=== PATIENT | male | born 1980 | race Caucasian/White ===

== ENCOUNTER 2020-08-27 07:41 | Emergency (ER) | payer MEDICAID, SELFPAY ==
--- NOTE | ~2020-08-27 | CT_ITS ---
EXAMINATION: CT ABDOMEN AND PELVIS WITH CONTRAST CLINICAL INFORMATION: Right lower quadrant pain. Nausea and vomiting. COMPARISON: None TECHNIQUE: Multidetector volumetric images were obtained from the superior aspect of the liver through the pubic symphysis following administration 85 mL of Omnipaque 350 intravenous contrast. Sagittal and coronal reformatted images were obtained on the technologist's workstation. Oral contrast: Yes This CT examination was performed using dose optimization techniques as appropriate, variously including the following: *Automated exposure control *Adjustment of mA and/or kV according to patient size (this includes techniques or standardized protocols for targeted exams where dose is matched to indication/reason for exam; i.e. extremities or head) *Use of iterative reconstruction technique DLP: 429 mGy-cm FINDINGS: LUNG BASES: The visualized lung bases are unremarkable. LIVER, GALLBLADDER, AND BILIARY TREE: The liver is normal in size, shape, and attenuation. No focal hepatic lesion or biliary ductal dilatation is present. The gallbladder is unremarkable with no evidence of radiopaque gallstones, gallbladder wall thickening, or obvious pericholecystic inflammatory changes. PANCREAS: Unremarkable. SPLEEN: Unremarkable. ADRENAL GLANDS: Unremarkable. KIDNEYS AND URETERS: There is a 2 cm cyst in the upper pole of the left kidney. No ultrasound follow-up needed. The kidneys are otherwise unremarkable. BLADDER: Unremarkable. GASTROINTESTINAL TRACT: There is stool throughout the colon questionable for constipation. The small and large bowel are otherwise unremarkable. The appendix is unremarkable. ABDOMINAL WALL: No significant hernia is appreciated. LYMPH NODES: Normal. VASCULAR: Unremarkable. PELVIC VISCERA: Unremarkable. OSSEOUS STRUCTURES: Unremarkable. There is degenerative disc disease at L4-L5 and L5-S1. CT/CT abdomen pelvis w con IMPRESSION: Normal-appearing appendix. Stool throughout the colon questionable for constipation. Small left renal cyst.
[2020-08-27 07:49] VITALS: BP 116/70; PULSE 52; RESP 12; TEMP 36.7; O2SAT 98; BMI 21.8
--- NOTE | 2020-08-27 08:14 | ED.NAVMDI ---
HPI - Nausea/Vomiting/Diarrhea General Chief complaint: Nausea/Vomiting/Diarrhea Stated complaint: vomiting, abd pain Time Seen by Provider: 08/27/20 08:12 Source: patient Mode of arrival: ambulatory Limitations: no limitations History of Present Illness MD elicited complaint: nausea, vomiting, diarrhea and abdominal pain Onset (ago): day(s) (this AM) Description of vomiting: food contents Associated nausea: Yes Associated abdominal pain: Yes Location of pain: RLQ Radiation: diffuse Pain consistency: intermittent Severity: mild Quality: cramping, aching and dull Exacerbating factors: eating Relieving factors: none Context: other (states he had his 2nd covid shot yesterday) Associated symptoms: nausea/vomiting Related Data Previous Rx's Medication Instructions Recorded ondansetron 4 mg PO Q8H PRN #20 tab 08/27/20 Allergies Allergy/AdvReac Type Severity Reaction Status Date / Time bee pollen [BEE STINGS] Allergy Unknown REDNESS Unverified 11/01/19 15:08 AND SWELLING morphine [MORPHINE] Allergy Unknown RASH Unverified 11/01/19 15:08 shrimp [SHRIMP] Allergy Unknown HIVES Unverified 11/01/19 15:08 Review of Systems Review of Systems: Constitutional : No Weight loss, No Fever, No Chills ENT/Mouth : No sore throat, No Rhinorrhea Eyes: No Swelling, No Redness Cardiovascular : No Chest Pain, No SOB, NoEdema Respiratory : No Cough, No Sputum, No Wheezing Gastrointestinal : Positive Nausea, Positive Vomiting, positive Diarrhea, positive abdominal Pain, No Hematochezia, No Melena Genitourinary : No Dysuria, No Urinary Frequency, No Hematuria, No Urgency Musculoskeletal : No joint pain, No Myalgias, No Joint Swelling Skin : No Skin Lesions, No rash Neuro : No Weakness, No Numbness, No Dizziness, No Headache Psych : No Anxiety/Panic, No Depression Heme/Lymph: No Bruising, No Lymphadenopathy Endocrine : No Polyuria, No Polydipsia All other systems reviewed and are negative. Gastrointestinal: Gastrointestinal: Reports nausea PMFSH Past Medical History Attestation statement: The following information was validated with the patient. Medical History No active medical problems Social History Social History (Updated 08/27/20 @ 08:20 by Vy Solano DO) Patient Tobacco Use Status: Current everyday Tobacco user Use of substances other than those prescribed or required for medical reasons: No Advance Directives: Yes Advance Directives Information Provided: No Advance Directives on File: No Physical Exam Vital Signs: Vital Signs: Last Vital Signs Temp 98.2 F 08/27/20 08:53 Pulse 47 L 08/27/20 08:53 Resp 16 08/27/20 08:53 BP 113/71 08/27/20 08:53 Pulse Ox 98 08/27/20 08:53 Body Mass Index 21.8 Appearance: Alert. Oriented X3. No acute distress. Eyes: Pupils equal, round and reactive to light. ENT: Pharynx normal. Neck: Normal inspection. Neck supple. CVS: Normal heart rate and rhythm. Pulses normal. Respiratory: No respiratory distress. Breath sounds normal. Abdomen: Soft and moderate RLQ ttp no rebound or guarding Skin: Skin warm and dry. Normal skin color. Normal skin turgor. Extremities: No lower extremity edema. No calf ttp Neuro: Oriented X 3. No motor deficit. No sensory deficit. Course Course Course Narrative: no acute findings can tolerate PO stable for DC MDM - Nausea/Vomiting/Diarrhea MDM Narrative Medical decision making narrative: 39 yo male had 2nd COVID shot yesterday comes in with n/v/d since middle of the night notes RLQ pain as well - seems unusual reaction will need labs, IVF, toradol/zofran and CT scan to evaluate appendix, dispo per results and findings. Differential Diagnosis Differential diagnosis: Likely food poisoning and drug-induced nausea and vomiting Lab Data Result diagrams: 08/27/20 08:51 08/27/20 08:51 Labs: Lab Results 08/27/20 08/27/20 Range/Units 08:51 08:51 WBC 6.7 (4.8-10.8) X10*3/uL RBC 4.10 L (4.60-5.80) X10*6/uL Hgb 12.9 L (14.0-18.0) g/dl Hct 37.2 L (42-52) % MCV 90.7 (80-98) fL MCH 31.5 (27.0-33.0) pg MCHC 34.7 (31.0-36.0) g/dl RDW 13.4 (11.0-16.0) % Plt Count 218 (160-400) X10*3/uL MPV 9.5 (9.4-12.4) fL Immature Gran % (Auto) 0.3 (0.0-0.4) % Neut % (Auto) 54.6 (45-73) % Lymph % (Auto) 27.2 (20-40) % Mcculloch % (Auto) 12.3 H (2-11) % Eos % (Auto) 4.6 H (0-4) % Baso % (Auto) 1.0 (0-2) % Lymph # (Auto) 1.8 (1.2-4.9) X10*3/uL Mcculloch # (Auto) 0.8 (0.1-1.2) X10*3/uL Eos # (Auto) 0.3 (0.0-0.4) X10*3/uL Baso # (Auto) 0.1 (0.0-0.2) X10*3/uL Abs Immat Gran (auto) 0.02 (0.00-0.03) X10*3/uL Absolute Neuts (auto) 3.6 (2.0-8.3) X10*3/uL Absolute Nucleated RBC 0.000 (0.0-0.012) X10*3/uL Nucleated RBC % (auto) 0.0 (0.0-0.2) /100WBC Sodium 141 (135-145) mmol/L Potassium 4.2 (3.3-5.1) mmol/L Chloride 109 H (96-108) mmol/L Carbon Dioxide 27 (22-29) mmol/L Anion Gap 9 L (12-20) BUN 14 (9-16) mg/dL Creatinine 0.82 (0.5-1.4) mg/dL Estim Creat Clear Calc 117.9 Estimated GFR > 60 Random Glucose 106 (60-115) mg/dL Calcium 8.7 (8.4-10.2) mg/dL Magnesium 2.3 (1.6-2.6) mg/dL Total Bilirubin 0.4 (0.0-1.0) mg/dL Direct Bilirubin 0.2 (0.0-0.5) mg/dL AST 20 (5-37) U/L ALT 22 (0-40) U/L Alkaline Phosphatase 54 (39-117) U/L Total Protein 6.2 L (6.5-8.0) g/dL Albumin 3.7 (3.5-5.0) g/dL Lipase 24 (8-78) U/L Discharge Plan Discharge Clinical Impression: Vomiting Qualifiers: Vomiting type: unspecified Vomiting Intractability: non-intractable Nausea presence: with nausea Qualified Code(s): R11.2 - Nausea with vomiting, unspecified Patient Disposition: Home, Self-Care Instructions: Acute Nausea and Vomiting (ED) Additional Instructions: return to ED for any worsening symptoms or concerns Prescriptions: New ondansetron 4 mg tablet,disintegrating 4 mg PO Q8H PRN (Reason: nausea and vomiting) Qty: 20 RF: 0 Stand Alone Forms: Work/School Release
[2020-08-27 08:53] VITALS: BP 113/71; PULSE 47; RESP 16; TEMP 36.8; O2SAT 98
[2020-08-27 08:58] LABS: MANUAL DIFF FLAG NO
[2020-08-27 09:00] LABS: Basophils Absolute Auto 0.1 X10*3/uL (0.0-0.2); Eosinophils Absolute Auto 0.3 X10*3/uL (0.0-0.4); Eosinophils Percent Auto 4.6 % (0-4); Hematocrit 37.2 % (42-52); Hemoglobin 12.9 g/dl (14.0-18.0); Imm Gran Abs Auto 0.02 X10*3/uL (0.00-0.03); Imm Gran Pct Auto 0.3 % (0.0-0.4); Lymphocytes Absolute Auto 1.8 X10*3/uL (1.2-4.9); Lymphocytes Percent Auto 27.2 % (20-40); Mean Corpuscular HGB Conc 34.7 g/dl (31.0-36.0); Mean Corpuscular Hemoglobin 31.5 pg (27.0-33.0); Mean Corpuscular Volume 90.7 fL (80-98); Mean Platelet Volume 9.5 fL (9.4-12.4); Monocytes Absolute Auto 0.8 X10*3/uL (0.1-1.2); Monocytes Percent Auto 12.3 % (2-11); Neutrophils Absolute Auto 3.6 X10*3/uL (2.0-8.3); Neutrophils Percent Auto 54.6 % (45-73); Platelet Count 218 X10*3/uL (160-400); Red Cell Distribution Width 13.4 % (11.0-16.0); White Blood Count 6.7 X10*3/uL (4.8-10.8)
[2020-08-27] MEDS: 0.9 % Sodium Chloride 1,000 ML 999 ML IVCONT (09:04)
[2020-08-27] MEDS: Ketorolac Tromethamine 15 MG/ML VIAL IVPUSH (09:08)
[2020-08-27] MEDS: ondansetron HCL 4 MG/2 ML VIAL IVPUSH (09:08)
[2020-08-27 09:32] LABS: Alanine Aminotransferase 22 U/L (0-40); Albumin Level 3.7 g/dL (3.5-5.0); Alkaline Phosphatase 54 U/L (39-117); Anion Gap 9 (12-20); Aspartate Amino Transferase 20 U/L (5-37); Bilirubin Direct 0.2 mg/dL (0.0-0.5); Bilirubin Total 0.4 mg/dL (0.0-1.0); Blood Urea Nitrogen 14 mg/dL (9-16); Calcium 8.7 mg/dL (8.4-10.2); Carbon Dioxide 27 mmol/L (22-29); Chloride 109 mmol/L (96-108); Creatinine Clr Calc Pharmacy 117.9; Estimated Glomerular Filt Rate > 60; Glucose Random 106 mg/dL (60-115); Lipase 24 U/L (8-78); Magnesium 2.3 mg/dL (1.6-2.6); Potassium 4.2 mmol/L (3.3-5.1); Sodium 141 mmol/L (135-145); Total Protein 6.2 g/dL (6.5-8.0)
[2020-08-27] MEDS: iohexoL 350 MG/ML 100 ML INFUS..BTL IV (09:43)
[2020-08-27 10:51] VITALS: BP 112/72; PULSE 56; RESP 16; O2SAT 98
== END 2020-08-27 10:55 | disposition home or self-care (01) ==
PROVIDERS: Emergency Provider Emergency Medicine
DX: R11.2 Nausea with vomiting, unspecified (principal); R10.31 Right lower quadrant pain; F17.200 Nicotine dependence, unspecified, uncomplicated; Z79.899 Other long term (current) drug therapy; Z71.6 Tobacco abuse counseling
CPT/HCPCS: 36415; 74177; 80048; 80076; 83690; 83735; 85025; 96365; 96375; 99284; J1885; J2405; Q9967

== ENCOUNTER 2020-12-11 08:59 | Emergency (ER) | payer MEDICAID, SELFPAY ==
[2020-12-11 09:28] VITALS: BP 120/73; PULSE 57; RESP 16; TEMP 36.4; O2SAT 99; BMI 21.2
--- NOTE | 2020-12-11 09:36 | ED.GENADULT ---
HPI - General Adult General Chief complaint: Skin/Abscess/Foreign Body Stated complaint: rash Time Seen by Provider: 12/11/20 09:36 Source: patient Limitations: no limitations History of Present Illness HPI narrative: Patient presents to the ER with a rash under his left breast that started with a burning sensation in his back in her came around under his left breast. Patient noticed some redness and blistering recently. Patient did some Google searches and thinks he has shingles. Patient denies past history of shingles patient denies nausea vomiting fever shortness of breath. Patient denies history of diabetes. Symptoms are mild to moderate pain as 6/10. No other complaints at this time. Related Data Previous Rx's Medication Instructions Recorded ondansetron 4 mg disintegrating 4 mg PO Q8H PRN #20 tab 08/27/20 tablet ibuprofen 600 mg tablet 600 mg PO Q8H PRN #20 tab 12/11/20 valacyclovir 1 gram tablet 1,000 mg PO TID 7 Days #21 tab 12/11/20 Allergies Allergy/AdvReac Type Severity Reaction Status Date / Time bee pollen [BEE STINGS] Allergy Unknown REDNESS Unverified 11/01/19 15:08 AND SWELLING morphine [MORPHINE] Allergy Unknown RASH Unverified 11/01/19 15:08 shrimp [SHRIMP] Allergy Unknown HIVES Unverified 11/01/19 15:08 Review of Systems Review of Systems: Constitutional : No Weight loss, No Fever, No Chills, ENT/Mouth : No Hearing loss, No Ear Pain, No Nasal Congestion Eyes: No Eye Pain, No Swelling, No Redness, No Foreign Body, No Discharge, No Vision Changes Cardiovascular : No Chest Pain, No SOB Respiratory : No Cough Gastrointestinal : No Nausea, No Vomiting, No Diarrhea Musculoskeletal : Positive rash upper torso extending the front of the chest. Patient denies any muscle skeletal pain. Neuro : No Weakness, No Numbness, No Paresthesias, No Loss of Consciousness, No Dizziness, No Headache PMFSH Past Medical History Attestation statement: The following information was validated with the patient. Medical History No active medical problems Social History Social History Alcohol intake: current Alcohol intake frequency: holidays/special occasions only Patient Tobacco Use Status: Current everyday Tobacco user Advance Directives: No Physical Exam Vital Signs: Vital Signs: Last Vital Signs Temp 97.6 F 12/11/20 09:28 Pulse 57 12/11/20 09:28 Resp 16 12/11/20 09:28 BP 120/73 12/11/20 09:28 Pulse Ox 99 12/11/20 09:28 Body Mass Index 21.2 vital signs have been reviewed as normal and appeared to be correct. Blood pressure normal. Heart rate normal. Respiration rate normal. Temperature normal. Oxygen saturation normal. Appearance: Alert. Oriented X3. No acute distress. Head: Normal external exam. Normocephalic. Atraumatic. Eyes: PERRLA. EOMI. ENT: Pharynx normal. Uvula midline. Moist mucous membranes. Neck: Soft full range of motion, no JVD CVS: Heart regular rate and rhythm no murmurs and rubs Respiratory: Breath sounds are clear to auscultation bilaterally. No accessory muscle use noted. Back: No CVA tenderness. Full range of motion noted. Skin: T4-T5 dermatome on the left side under the left breast positive blistering erythematous rash which is consistent with zoster. Extremities: No lower extremity edema. Extremities exhibit normal range of motion. Extremities nontender. Neuro: Oriented X 3. No motor deficit. No sensory deficit. Reflexes normal. Course Course Course Narrative: T4-T5 left dermatomal zoster Cellulitis Acute rash Contact dermatitis Symptoms are consistent with zoster in the T4-T5 dermatome on the left side it has been greater than 72 hours will treat with valacyclovir and analgesic at this time. Discharge Plan Discharge Clinical Impression: Herpes zoster Qualifiers: Herpes zoster complications: with other complications Qualified Code(s): B02.8 - Zoster with other complications Patient Disposition: Home, Self-Care Instructions: Shingles (ED) Additional Instructions: Your symptoms are consistent with shingles medications as directed follow-up with PCP Prescriptions: New valacyclovir 1 gram tablet 1,000 mg PO TID 7 Days Qty: 21 RF: 0 ibuprofen 600 mg tablet 600 mg PO Q8H PRN (Reason: pain) Qty: 20 RF: 0 No Action ondansetron 4 mg tablet,disintegrating 4 mg PO Q8H PRN (Reason: nausea and vomiting) Qty: 20 RF: 0
== END 2020-12-11 09:53 | disposition home or self-care (01) ==
PROVIDERS: Emergency Provider Emergency Medicine
DX: B02.8 Zoster with other complications (principal)
CPT/HCPCS: 99283

== ENCOUNTER 2020-12-22 10:18 | Emergency (ER) | payer MEDICAID, SELFPAY ==
[2020-12-22 10:41] VITALS: BP 123/67; PULSE 59; RESP 19; TEMP 36.6; O2SAT 99; BMI 21.2
--- NOTE | 2020-12-22 11:00 | ED.GENADULT ---
HPI - General Adult General Chief complaint: General Medical Stated complaint: swollen face Time Seen by Provider: 12/22/20 10:58 Source: patient Mode of arrival: ambulatory Limitations: no limitations History of Present Illness HPI narrative: 40-year-old male came in for evaluation of right facial swelling. Patient declined any dental pain or recent sinus infection in the past, patient also declined fever or chills. No trauma to the face. Facial swelling starting since a.m. Related Data Previous Rx's Medication Instructions Recorded ondansetron 4 mg disintegrating 4 mg PO Q8H PRN #20 tab 08/27/20 tablet ibuprofen 600 mg tablet 600 mg PO Q8H PRN #20 tab 12/11/20 valacyclovir 1 gram tablet 1,000 mg PO TID 7 Days #21 tab 12/11/20 amoxicillin 875 mg-potassium 1 tab PO Q12H #14 tab 12/22/20 clavulanate 125 mg tablet (Augmentin) Allergies Allergy/AdvReac Type Severity Reaction Status Date / Time bee pollen [BEE STINGS] Allergy Unknown REDNESS Unverified 11/01/19 15:08 AND SWELLING morphine [MORPHINE] Allergy Unknown RASH Unverified 11/01/19 15:08 shrimp [SHRIMP] Allergy Unknown HIVES Unverified 11/01/19 15:08 Review of Systems Review of Systems: All other systems are reviewed and are negative Constitutional: Reports as per HPI and Reports no additional constitutional complaints Eyes: Reports as per HPI and Reports no additional eye complaints Reports system reviewed and no additional complaints, except as documented Cardiovascular: Reports as per HPI and Reports no additional cardiovascular complaints Respiratory: Reports as per HPI and Reports no additional respiratory complaints Gastrointestinal: Reports as per HPI and Reports no additional gastrointestinal complaints Genitourinary: Reports no additional female genitourinary complaints Musculoskeletal: Reports no additional musculoskeletal complaints Skin/Breast: Reports system reviewed and no additional complaints, except as docu Psychiatric: Reports no additional psychiatric complaints Endocrine: Reports no additional endocrine complaints Hematologic/Lymphatic: Reports no additional hematologic/lymphatic complaints Allergic/Immunologic: Reports no additional allergic/immunologic complaints Reports system reviewed and no additional complaints, except as documented and Reports Abnormal speech present PMFSH Past Medical History Medical History No active medical problems Social History Social History Alcohol intake: current Alcohol intake frequency: holidays/special occasions only Patient Tobacco Use Status: Current everyday Tobacco user Advance Directives: No Advance Directives Information Provided: Yes Physical Exam Vital Signs: Vital Signs: Last Vital Signs Temp 97.9 F 12/22/20 10:41 Pulse 59 12/22/20 10:41 Resp 19 12/22/20 10:41 BP 123/67 12/22/20 10:41 Pulse Ox 99 12/22/20 10:41 Body Mass Index 21.2 Vital signs have been reviewed as appeared to be correct. Blood pressure normal. Heart rate normal. Respiration rate normal. Temperature normal. Oxygen saturation normal. Appearance: Alert. Oriented X3. No acute distress. Head: Normal external exam. Normocephalic. Atraumatic. No Andersen signs noted. No raccoon eyes noted Eyes: PERRLA. EOMI. Conjunctiva and sclera normal. Eyelids normal. Facial exam and dental exam: Swelling over right mandibular area, no fluctuation, no drainage, no abscess is appreciated, with decay of the right lower 3rd molar tooth no dental abscess. ENT: TM's Normal. Pharynx normal. Uvula midline. Moist mucous membranes. No trismus noted. No drooling noted. No muffled voice noted. Neck: Normal inspection. Neck supple. FROM. No adenopathy. Thyroid Normal. No meningeal signs. No neck mass noted. CVS: Normal heart rate and rhythm. Heart sound normal. No murmurs noted. Pulses normal throughout. Respiratory: No respiratory distress. Painless inspiration. Breath sounds normal. No wheezes/rales/rhonchi noted. Chest nontender. No accessory muscle usage noted or decreased air movement noted. Abdomen: Soft and nontender. Bowel sounds normal in all 4 quadrants. No distention noted. No organomegaly noted. No visible injury noted. Back: No CVA tenderness. Full range of motion noted. Skin: Skin warm and dry. Normal skin color. Normal skin turgor. No rashes/lesions/lacerations noted. Extremities: No lower extremity edema. Extremities exhibit normal range of motion. Extremities nontender. Neuro: Oriented X 3. Cranial nerve exam: II-XII are grossly intact No motor deficit. No sensory deficit. Reflexes normal. Course Course Course Narrative: Assessment and plan. Facial cellulitis likely secondary to a dental infection, as discussed with the patient we will start the patient on Augmentin and follow-up with his dentist within a week. Discharge Plan Discharge Clinical Impression: Facial cellulitis Patient Disposition: Home, Self-Care Instructions: Cellulitis (ED) Prescriptions: New amoxicillin-pot clavulanate [Augmentin] 875-125 mg tablet 1 tab PO Q12H Qty: 14 RF: 0 No Action ondansetron 4 mg tablet,disintegrating 4 mg PO Q8H PRN (Reason: nausea and vomiting) Qty: 20 RF: 0 valacyclovir 1 gram tablet 1,000 mg PO TID 7 Days Qty: 21 RF: 0 ibuprofen 600 mg tablet 600 mg PO Q8H PRN (Reason: pain) Qty: 20 RF: 0 Referrals: Physician,None [Primary Care Provider] - 2 days Stand Alone Forms: Work/School Release
--- NOTE | 2020-12-22 11:19 | PC.NURSE ---
PT STATES THIS MORNING HE WOKE UP AND RIGHT SIDE OF FACE WAS SWOLLEN AND HURT WHEN HE OPENNED HIS MOUTH OR TRIED TO EAT. DENIES ANY DENTAL CARIES.
== END 2020-12-22 11:20 | disposition home or self-care (01) ==
LOC: HO.ED 11:00
PROVIDERS: Emergency Provider Emergency Medicine
DX: L03.211 Cellulitis of face (principal); F17.200 Nicotine dependence, unspecified, uncomplicated; Z71.6 Tobacco abuse counseling; Z79.899 Other long term (current) drug therapy
CPT/HCPCS: 99283

== ENCOUNTER 2021-01-26 10:46 | Emergency (ER) | payer MEDICAID, SELFPAY ==
[2021-01-26 11:10] VITALS: BP 132/76; PULSE 71; RESP 17; TEMP 36.8; O2SAT 98; BMI 19.3
--- NOTE | 2021-01-26 11:22 | ED_ITS ---
HPI - General Adult General Chief complaint: General Medical Stated complaint: multiple painful lumps on R earlobe Time Seen by Provider: 01/26/21 11:21 Source: patient Mode of arrival: ambulatory Limitations: no limitations History of Present Illness HPI narrative: Tract 40-year-old male with no significant past medical history presents to the emergency department with a lump that is painful behind his right ear X 7 days. Patient tells me that the area is very tender, and it is causing him discomfort when he sleeps, and when he wears a mask. He tells me he has tried multiple pain medicines, without relief, he tells me the lump keeps getting larger. Onset (ago): day(s) (7) Location: right (behind ear) Radiation: non-radiation Severity: severe Severity scale (1-10): 10 Quality: aching and constant Pain Consistency: constant Relieving factors: none Exacerbating factors: none Associated symptoms: denies other symptoms Treatments prior to arrival: NSAID Related Data Previous Rx's Medication Instructions Recorded ondansetron 4 mg disintegrating 4 mg PO Q8H PRN #20 tab 08/27/20 tablet ibuprofen 600 mg tablet 600 mg PO Q8H PRN #20 tab 12/11/20 valacyclovir 1 gram tablet 1,000 mg PO TID 7 Days #21 tab 12/11/20 amoxicillin 875 mg-potassium 1 tab PO Q12H #14 tab 12/22/20 clavulanate 125 mg tablet (Augmentin) doxycycline hyclate 100 mg capsule 100 mg PO BID 10 Days #20 cap 01/26/21 oxycodone 5 mg tablet 5 mg PO Q8H PRN #8 tab 01/26/21 prednisone 20 mg tablet 40 mg PO DAILY 5 Days #10 tab 01/26/21 Allergies Allergy/AdvReac Type Severity Reaction Status Date / Time bee pollen [BEE STINGS] Allergy Unknown REDNESS Verified 01/26/21 11:09 AND SWELLING morphine [MORPHINE] Allergy Unknown RASH Verified 01/26/21 11:09 shrimp [SHRIMP] Allergy Unknown HIVES Verified 01/26/21 11:09 Review of Systems Review of Systems: Constitutional : No Fever, No Chills, Cardiovascular : No Chest Pain, No SOB Respiratory : No Dyspnea Gastrointestinal : No abdominal pain Musculoskeletal : No Joint Swelling Skin : No rash, No skin laceration, + skin lump/mass Neuro : No Weakness, No Numbness Psych : No SI/HI Yes all other systems are reviewed and are negative [facility] Past Medical History Attestation statement: The following information was validated with the patient. Source: old records reviewed and nursing notes reviewed Medical History No active medical problems Social History Social History Alcohol intake: current Alcohol intake frequency: holidays/special occasions only Patient Tobacco Use Status: Current everyday Tobacco user Advance Directives: No Advance Directives Information Provided: No Physical Exam Vital Signs: Vital Signs: Last Vital Signs Temp 98.2 F 01/26/21 11:10 Pulse 71 01/26/21 11:10 Resp 17 01/26/21 11:10 BP 132/76 01/26/21 11:10 Pulse Ox 98 01/26/21 11:10 BMI result Body Mass Index 19.3 VSS Appearance: Alert.? Oriented X3.? No acute distress.? Head: Normocephalic, atraumatic, no step-offs or deformities Eyes: Pupils equal, round and reactive to light.? ENT: Pharynx normal.?+ palpable posterior auricular adenopathy on right side. + abscess behind the right ear. No pain with manipulation of external ear, unable to visualize bilateral tympanic membranes due to cerumen impaction. Neck: Normal inspection.? Neck supple.? CVS: Normal heart rate and rhythm.? Pulses normal.? Respiratory: No respiratory distress.? Breath sounds normal.? Abdomen: Soft and nontender.? Skin: Skin warm and dry.? Normal skin color.? Normal skin turgor.? Extremities: No lower extremity edema.? No calf ttp. 5/5 strength to bilateral upper and lower extremities Back: No midline tenderness, no C-spine tenderness, full range of motion, no CVA tenderness bilaterally Neuro: Oriented X 3.? No motor deficit.? No sensory deficit. Course Reevaluation(s) Reevaluation #1: Successfully did an incision and drainage at the bedside, patient tolerated procedure well. Plan at this time is to discharge patient home on prednisone and antibiotics. I have advised him to return to the emergency department with new or worsening symptoms, and follow up with his PCP for further evaluation I attest that I have reviewed patients MassPAT, and at the time prescribing the patient a controlled substance is appropriate based off of patients diagnosis and treatment plan. Time: 11:57 Procedures Abscess I/D Site: other (Behind right ear) Side (if applicable): right Local Anesthetic: lidocaine 2% Amount of anesthesia used (mL): 3 Technique: incised with blade Amount of fluid expressed (mL): 8 Sent for culture/gram staining?: No Irrigation: Yes Packing used?: none Medical Decision Making [facility] Narrative Medical decision making narrative: 1125 40-year-old male with no significant medical history presents to the emergency department with pain, swelling and a lump located behind right ear X 1 week progressivly worsening. Denies constitutional sx, and fevers and chills. Magnus CONLEY on tetanus. Physical exam significant for right-sided posterior auricular adenopathy and a large abcess behidn the right ear No other lymphadenopathy noted. Rest of physical examination benign. Plan at this time is to do a bedside incision and drainage she with 2% lidocaine. Critical Care Time Critical Care Time Critical Care Time: No Discharge Plan Discharge Clinical Impression: Abscess, Lymphadenopathy Patient Disposition: Home, Self-Care Instructions: Lymphadenopathy (ED), Abscess (ED), Abscess Follow-up (ED), Abscess Incision and Drainage (DC) Additional Instructions: Take your medications as prescribed. If you were prescribed antibiotics today, it is important that you take your medication to their entirety, do not skip any doses, do not finish them early. Follow-up with your primary care provider this week. Return to the emergency department with new or worsening symptoms. In case of emergency call 911 I attest that I have reviewed patients MassPAT, and at the time prescribing the patient a controlled substance is appropriate based off of patients diagnosis and treatment plan. Prescriptions: New doxycycline hyclate 100 mg capsule 100 mg PO BID 10 Days Qty: 20 RF: 0 prednisone 20 mg tablet 40 mg PO DAILY 5 Days Qty: 10 RF: 0 oxycodone 5 mg tablet 5 mg PO Q8H PRN (Reason: pain) Qty: 8 RF: 0 No Action ondansetron 4 mg tablet,disintegrating 4 mg PO Q8H PRN (Reason: nausea and vomiting) Qty: 20 RF: 0 valacyclovir 1 gram tablet 1,000 mg PO TID 7 Days Qty: 21 RF: 0 ibuprofen 600 mg tablet 600 mg PO Q8H PRN (Reason: pain) Qty: 20 RF: 0 amoxicillin-pot clavulanate [Augmentin] 875-125 mg tablet 1 tab PO Q12H Qty: 14 RF: 0 Referrals: Physician,None [Primary Care Provider] - 2 days Stand Alone Forms: Work/School Release
[2021-01-26] MEDS: Lidocaine HCl 2 % MPF 5 ML VIAL SUBCUT (12:20)
== END 2021-01-26 12:23 | disposition home or self-care (01) ==
PROVIDERS: Emergency Provider Emergency Medicine
DX: L02.811 Cutaneous abscess of head [any part, except face] (principal); R59.0 Localized enlarged lymph nodes
CPT/HCPCS: 10060; 99283; 99284

== ENCOUNTER 2021-07-30 20:44 | Emergency (ER) | payer MEDICAID, SELFPAY ==
--- NOTE | ~2021-07-30 | XR_ITS ---
EXAMINATION: XR CHEST CLINICAL INFORMATION: Rib pain/cough COMPARISON: None TECHNIQUE: 2 views of the chest were obtained. FINDINGS: The lungs are well-expanded and clear. The heart size and pulmonary vascularity is normal. No gross bony abnormality seen. XR/XR chest 2V IMPRESSION: Unremarkable chest exam
[2021-07-30 21:01] VITALS: BP 113/56; PULSE 73; RESP 18; TEMP 37.2; O2SAT 98; BMI 22.2
--- NOTE | 2021-07-30 21:49 | PC.NURSE ---
pt not in waiting room at this time wait time is 1 hour.
--- NOTE | 2021-07-30 22:39 | ECG_ITS ---
Test Reason : rib pain Blood Pressure : / mmHG Vent. Rate : 054 BPM Atrial Rate : 054 BPM P-R Int : 128 ms QRS Dur : 094 ms QT Int : 408 ms P-R-T Axes : 073 063 042 degrees QTc Int : 386 ms Sinus bradycardia Otherwise normal ECG When compared with ECG of 17-MAY-2018 12:35, No significant change was found Referred By: Leonardo Ruano Electronically Signed By:Dao Alicia
[2021-07-30 23:05] LABS: Basophils Absolute Auto 0.1 X10*3/uL (0.0-0.2); Basophils Percent Auto 1.2 % (0-2); Eosinophils Absolute Auto 0.3 X10*3/uL (0.0-0.4); Eosinophils Percent Auto 4.4 % (0-4); Hematocrit 37.9 % (42.0-52.0); Hemoglobin 12.9 g/dl (14.0-18.0); Imm Gran Abs Auto 0.02 X10*3/uL (0.00-0.03); Imm Gran Pct Auto 0.3 % (0.0-0.4); Lymphocytes Absolute Auto 2.1 X10*3/uL (1.2-4.9); Lymphocytes Percent Auto 29.3 % (20-40); MANUAL DIFF FLAG NO; Mean Corpuscular Hemoglobin 30.5 pg (27.0-33.0); Mean Corpuscular Volume 89.6 fL (80.0-98.0); Mean Platelet Volume 9.7 fL (9.4-12.4); Monocytes Absolute Auto 0.7 X10*3/uL (0.1-1.2); Monocytes Percent Auto 10.2 % (2-11); Neutrophils Percent Auto 54.6 % (45-73); Platelet Count 229 X10*3/uL (160-400); Red Blood Count 4.23 X10*6/uL (4.60-5.80); Red Cell Distribution Width 14.2 % (11.0-16.0); White Blood Count 7.3 X10*3/uL (4.8-10.8)
[2021-07-30 23:13] LABS: D Dimer High Sensitivity < 150 NG/ML
[2021-07-30 23:26] LABS: Alanine Aminotransferase 25 U/L (0-40); Alkaline Phosphatase 56 U/L (39-117); Anion Gap 11 (12-20); Aspartate Amino Transferase 27 U/L (5-37); Bilirubin Direct 0.2 mg/dL (0.0-0.5); Bilirubin Total 0.4 mg/dL (0.0-1.0); Blood Urea Nitrogen 15 mg/dL (9-16); Carbon Dioxide 26 mmol/L (22-29); Chloride 106 mmol/L (96-108); Creatinine Clr Calc Pharmacy 95.7; Estimated Glomerular Filt Rate > 60; Glucose Random 89 mg/dL (60-115); Lipase 65 U/L (8-78); Potassium 3.9 mmol/L (3.3-5.1); Sodium 139 mmol/L (135-145); Total Protein 6.8 g/dL (6.5-8.0)
[2021-07-30 23:31] LABS: Troponin-I High Sensitivity < 3.5 ng/L (<3.5-35.0)
--- NOTE | 2021-07-30 23:45 | ED.GENADULT ---
HPI - General Adult General Chief complaint: Upper Respiratory Symptoms Stated complaint: bilateral rib pain Time Seen by Provider: 07/30/21 22:39 Source: patient Mode of arrival: ambulatory Limitations: no limitations History of Present Illness HPI narrative: 40 years old male came in for evaluation of bilateral rib pain. Pain started since yesterday, the pain has been constant localized to bilateral chest wall with no radiation, pain is more with movement and taking a deep breath, patient been having dry coughing, no fever or chills, Patient declined any recent travel or lower extremity swelling no history of DVT / PE, no family history of young or [place] at young age. Patient quit smoking 1 year ago. No history of hypertension or diabetes or high cholesterol. No history of chest trauma. Related Data Previous Rx's Medication Instructions Recorded ondansetron 4 mg disintegrating 4 mg PO Q8H PRN nausea and 08/27/20 tablet vomiting #20 tabs ibuprofen 600 mg tablet 600 mg PO Q8H PRN pain #20 tabs 12/11/20 valacyclovir 1 gram tablet 1,000 mg PO TID 7 days #21 tabs 12/11/20 amoxicillin 875 mg-potassium 1 tab PO Q12H #14 tabs 12/22/20 clavulanate 125 mg tablet (Augmentin) doxycycline hyclate 100 mg capsule 100 mg PO BID 10 days #20 caps 01/26/21 oxycodone 5 mg tablet 5 mg PO Q8H PRN pain #8 tabs 01/26/21 prednisone 20 mg tablet 40 mg PO DAILY 5 days #10 tabs 01/26/21 Allergies Allergy/AdvReac Type Severity Reaction Status Date / Time bee pollen [BEE STINGS] Allergy Unknown REDNESS Verified 07/30/21 21:01 AND SWELLING morphine [MORPHINE] Allergy Unknown RASH Verified 07/30/21 21:01 shrimp [SHRIMP] Allergy Unknown HIVES Verified 07/30/21 21:01 Review of Systems Review of Systems: All other systems are reviewed and are negative Constitutional: Reports as per HPI and Reports no additional constitutional complaints Eyes: Reports as per HPI and Reports no additional eye complaints Reports system reviewed and no additional complaints, except as documented Cardiovascular: Reports as per HPI and Reports no additional cardiovascular complaints Respiratory: Reports as per HPI and Reports no additional respiratory complaints Gastrointestinal: Reports as per HPI and Reports no additional gastrointestinal complaints Genitourinary: Reports no additional female genitourinary complaints Musculoskeletal: Reports no additional musculoskeletal complaints Skin/Breast: Reports system reviewed and no additional complaints, except as docu Psychiatric: Reports no additional psychiatric complaints Endocrine: Reports no additional endocrine complaints Hematologic/Lymphatic: Reports no additional hematologic/lymphatic complaints Allergic/Immunologic: Reports no additional allergic/immunologic complaints Reports system reviewed and no additional complaints, except as documented and Reports Abnormal speech present [facility] Past Medical History Medical History No active medical problems Social History Social History Alcohol intake: current Alcohol intake frequency: holidays/special occasions only Patient Tobacco Use Status: Current everyday Tobacco user Advance Directives: No Physical Exam ED Vital Signs: Vital Signs - 24 hr 07/30/21 21:01 Temperature 99.0 F Pulse Rate 73 Respiratory Rate 18 Blood Pressure 113/56 L Pulse Oximetry 98 Oxygen Delivery Method Room Air BMI result Body Mass Index 22.2 vital signs have been reviewed as appeared to be correct. Blood pressure normal. Heart rate normal. Respiration rate normal. Temperature normal. Oxygen saturation normal. Appearance: Alert. Oriented X3. No acute distress. Head: Normal external exam. Normocephalic. Atraumatic. No Andersen signs noted. No raccoon eyes noted Eyes: PERRLA. EOMI. Conjunctiva and sclera normal. Eyelids normal. ENT: TM's Normal. Pharynx normal. Uvula midline. Moist mucous membranes. No trismus noted. No drooling noted. No muffled voice noted. Neck: Normal inspection. Neck supple. FROM. No adenopathy. Thyroid Normal. No meningeal signs. No neck mass noted. CVS: Normal heart rate and rhythm. Heart sound normal. No murmurs noted. Pulses normal throughout. Respiratory: No respiratory distress. Painless inspiration. Breath sounds normal. No wheezes/rales/rhonchi noted. Chest nontender. No accessory muscle usage noted or decreased air movement noted. Abdomen: Soft and nontender. Bowel sounds normal in all 4 quadrants. No distention noted. No organomegaly noted. No visible injury noted. Back: No CVA tenderness. Full range of motion noted. Skin: Skin warm and dry. Normal skin color. Normal skin turgor. No rashes/lesions/lacerations noted. Extremities: No lower extremity edema. Extremities exhibit normal range of motion. Extremities nontender. Neuro: Oriented X 3. Cranial nerve exam: II-XII are grossly intact No motor deficit. No sensory deficit. Reflexes normal. Course Course Course Narrative: Assessment and plan. 40-year-old male bilateral chest wall pain, patient at HEART SCORE 0, no risk for PE or DVT with negative D-dimer. Physical exam is more consistent with chest wall pain discharge to use ibuprofen if needed for pain. Medical Decision Making Lab Data Lab results reviewed: Yes I reviewed the patient's lab results. Result diagrams: 07/30/21 22:58 07/30/21 22:58 Labs: Lab Results 07/30/21 07/30/21 07/30/21 Range/Units 22:58 22:58 22:58 WBC 7.3 (4.8-10.8) X10*3/uL RBC 4.23 L (4.60-5.80) X10*6/uL Hgb 12.9 L (14.0-18.0) g/dl Hct 37.9 L (42.0-52.0) % MCV 89.6 (80.0-98.0) fL MCH 30.5 (27.0-33.0) pg MCHC 34.0 (31.0-36.0) g/dl RDW 14.2 (11.0-16.0) % Plt Count 229 (160-400) X10*3/uL MPV 9.7 (9.4-12.4) fL Immature Gran % (Auto) 0.3 (0.0-0.4) % Neut % (Auto) 54.6 (45-73) % Lymph % (Auto) 29.3 (20-40) % Cam[place] % (Auto) 10.2 (2-11) % Eos % (Auto) 4.4 H (0-4) % Baso % (Auto) 1.2 (0-2) % Lymph # (Auto) 2.1 (1.2-4.9) X10*3/uL [place] # (Auto) 0.7 (0.1-1.2) X10*3/uL Eos # (Auto) 0.3 (0.0-0.4) X10*3/uL Baso # (Auto) 0.1 (0.0-0.2) X10*3/uL Abs Immat Gran (auto) 0.02 (0.00-0.03) X10*3/uL Absolute Neuts (auto) 4.0 (2.0-8.3) x10*3/uL Absolute Nucleated RBC 0.000 (0.0-0.012) X10*3/uL Nucleated RBC % (auto) 0.0 (0.0-0.2) /100WBC D-Dimer High Sensitivty NG/ML Sodium 139 (135-145) mmol/L Potassium 3.9 (3.3-5.1) mmol/L Chloride 106 (96-108) mmol/L Carbon Dioxide 26 (22-29) mmol/L Anion Gap 11 L (12-20) BUN 15 (9-16) mg/dL Creatinine 1.02 (0.5-1.4) mg/dL Estim Creat Clear Calc 95.7 Estimated GFR > 60 Random Glucose 89 (60-115) mg/dL Calcium 9.0 (8.4-10.2) mg/dL Total Bilirubin 0.4 (0.0-1.0) mg/dL Direct Bilirubin 0.2 (0.0-0.5) mg/dL AST 27 (5-37) U/L ALT 25 (0-40) U/L Alkaline Phosphatase 56 (39-117) U/L Troponin I High Sens < 3.5 (<3.5-35.0) ng/L Total Protein 6.8 (6.5-8.0) g/dL Albumin 4.0 (3.5-5.0) g/dL Lipase 65 (8-78) U/L 07/30/21 Range/Units 22:58 WBC (4.8-10.8) X10*3/uL RBC (4.60-5.80) X10*6/uL Hgb (14.0-18.0) g/dl Hct (42.0-52.0) % MCV (80.0-98.0) fL MCH (27.0-33.0) pg MCHC (31.0-36.0) g/dl RDW (11.0-16.0) % Plt Count (160-400) X10*3/uL MPV (9.4-12.4) fL Immature Gran % (Auto) (0.0-0.4) % Neut % (Auto) (45-73) % Lymph % (Auto) (20-40) % [place] % (Auto) (2-11) % Eos % (Auto) (0-4) % Baso % (Auto) (0-2) % Lymph # (Auto) (1.2-4.9) X10*3/uL [place] # (Auto) (0.1-1.2) X10*3/uL Eos # (Auto) (0.0-0.4) X10*3/uL Baso # (Auto) (0.0-0.2) X10*3/uL Abs Immat Gran (auto) (0.00-0.03) X10*3/uL Absolute Neuts (auto) (2.0-8.3) x10*3/uL Absolute Nucleated RBC (0.0-0.012) X10*3/uL Nucleated RBC % (auto) (0.0-0.2) /100WBC D-Dimer High Sensitivty < 150 NG/ML Sodium (135-145) mmol/L Potassium (3.3-5.1) mmol/L Chloride (96-108) mmol/L Carbon Dioxide (22-29) mmol/L Anion Gap (12-20) BUN (9-16) mg/dL Creatinine (0.5-1.4) mg/dL Estim Creat Clear Calc Estimated GFR Random Glucose (60-115) mg/dL Calcium (8.4-10.2) mg/dL Total Bilirubin (0.0-1.0) mg/dL Direct Bilirubin (0.0-0.5) mg/dL AST (5-37) U/L ALT (0-40) U/L Alkaline Phosphatase (39-117) U/L Troponin I High Sens (<3.5-35.0) ng/L Total Protein (6.5-8.0) g/dL Albumin (3.5-5.0) g/dL Lipase (8-78) U/L Imaging Data Chest x-ray: Attestation: I personally reviewed and interpreted this imaging study as follows: Radiologist's impression: Unremarkable chest exam. ECG Data Attestation: I personally reviewed and interpreted this ECG as follows: Interpretation: Normal sinus rhythm at 54 beats per minute, normal axis deviation, normal intervals. No significant change from previous EKG. Discharge Plan Discharge Clinical Impression: Chest wall pain Patient Disposition: Home, Self-Care Instructions: Chest Wall Pain (ED) Prescriptions: No Action ondansetron 4 mg tablet,disintegrating 4 mg PO Q8H PRN (Reason: nausea and vomiting) Qty: 20 0RF valacyclovir 1 gram tablet 1,000 mg PO TID 7 Days Qty: 21 0RF ibuprofen 600 mg tablet 600 mg PO Q8H PRN (Reason: pain) Qty: 20 0RF amoxicillin-pot clavulanate [Augmentin] 875-125 mg tablet 1 tab PO Q12H Qty: 14 0RF doxycycline hyclate 100 mg capsule 100 mg PO BID 10 Days Qty: 20 0RF prednisone 20 mg tablet 40 mg PO DAILY 5 Days Qty: 10 0RF oxycodone 5 mg tablet 5 mg PO Q8H PRN (Reason: pain) Qty: 8 0RF Rx Instructions: Patient can partially fill prescription upon request Referrals: Luther Martin III, MD [Primary Care Provider] - Stand Alone Forms: Work/School Release
== END 2021-07-31 00:32 | disposition home or self-care (01) ==
PROVIDERS: Emergency Provider Emergency Medicine; PCP Internal Medicine
DX: R07.89 Other chest pain (principal); F17.200 Nicotine dependence, unspecified, uncomplicated
CPT/HCPCS: 36415; 71046; 80048; 80076; 83690; 84484; 85025; 85379; 93005; 99283; 99284

== ENCOUNTER 2021-11-18 08:29 | Emergency (ER) | payer MEDICAID, SELFPAY ==
--- NOTE | ~2021-11-18 | XR_ITS ---
EXAMINATION: XR CHEST CLINICAL INFORMATION: Chest pain COMPARISON: 07/30/2021 TECHNIQUE: 2 views of the chest were obtained. FINDINGS: No acute finding. Lung sullivan are grossly clear. No infiltrate or effusion. The cardiac silhouette is within normal limits. The hilar structures are not pathologically enlarged. There is no effusion. XR/XR chest 2V IMPRESSION: No acute finding.
--- NOTE | 2021-11-18 08:31 | ECG_ITS ---
Test Reason : chest pain Blood Pressure : / mmHG Vent. Rate : 065 BPM Atrial Rate : 065 BPM P-R Int : 126 ms QRS Dur : 092 ms QT Int : 374 ms P-R-T Axes : 074 076 044 degrees QTc Int : 388 ms Normal sinus rhythm Normal ECG When compared with ECG of 30-JUL-2021 22:44, Heart rate has increased Referred By: Generic ED Physician Electronically Signed By:AMMON JOSÉ
[2021-11-18 08:32] VITALS: BP 115/67; PULSE 65; RESP 15; TEMP 36.6; O2SAT 98; BMI 21.2
[2021-11-18 10:40] LABS: MANUAL DIFF FLAG NO
[2021-11-18 10:43] LABS: Basophils Absolute Auto 0.1 X10*3/uL (0.0-0.2); Basophils Percent Auto 1.2 % (0-2); Eosinophils Absolute Auto 0.4 X10*3/uL (0.0-0.4); Eosinophils Percent Auto 7.3 % (0-4); Hematocrit 41.7 % (42.0-52.0); Hemoglobin 14.4 g/dl (14.0-18.0); Imm Gran Abs Auto 0.01 X10*3/uL (0.00-0.03); Imm Gran Pct Auto 0.2 % (0.0-0.4); Lymphocytes Absolute Auto 1.8 X10*3/uL (1.2-4.9); Lymphocytes Percent Auto 30.6 % (20-40); Mean Corpuscular HGB Conc 34.5 g/dl (31.0-36.0); Mean Corpuscular Hemoglobin 30.6 pg (27.0-33.0); Mean Corpuscular Volume 88.7 fL (80.0-98.0); Mean Platelet Volume 9.2 fL (9.4-12.4); Monocytes Absolute Auto 0.5 X10*3/uL (0.1-1.2); Monocytes Percent Auto 7.8 % (2-11); Neutrophils Absolute Auto 3.1 x10*3/uL (2.0-8.3); Neutrophils Percent Auto 52.9 % (45-73); Platelet Count 216 X10*3/uL (160-400); Red Cell Distribution Width 13.3 % (11.0-16.0); White Blood Count 5.9 X10*3/uL (4.8-10.8)
[2021-11-18 10:57] LABS: Anion Gap 12 (12-20); Blood Urea Nitrogen 17 mg/dL (9-16); Chloride 105 mmol/L (96-108); Creatinine Clr Calc Pharmacy 119.5; Estimated Glomerular Filt Rate > 60; Glucose Random 115 mg/dL (60-115); Potassium 4.6 mmol/L (3.3-5.1); Sodium 139 mmol/L (135-145)
[2021-11-18 10:59] LABS: Carbon Dioxide 27 mmol/L (22-29)
[2021-11-18 11:03] LABS: Troponin-I High Sensitivity < 3.5 ng/L (<3.5-35.0)
[2021-11-18 11:12] VITALS: BP 112/56; PULSE 53; RESP 13; TEMP 37; O2SAT 100
--- NOTE | 2021-11-18 11:13 | ED_ITS ---
HPI - General Adult General Chief complaint: Arrhythmia/Palpitations Stated complaint: chest pain Time Seen by Provider: 11/18/21 11:01 Source: patient Mode of arrival: ambulatory Limitations: no limitations History of Present Illness HPI narrative: 40-year-old male presents to the ED for palpitations have been occurring off and on for the past 3 months. Patient states he had another episode yesterday that lasted 5 minutes. Patient states he had another episode around 06:00 this morning and then resolved. Patient presently asympotamatic. Patient denies any pleurisy leg swelling, calf pain, coughing up blood, recent long travel, recent surgery, history of blood clots, or any recent trauma. Related Data Previous Rx's Medication Instructions Recorded ondansetron 4 mg disintegrating 4 mg PO Q8H PRN nausea and 08/27/20 tablet vomiting #20 tabs ibuprofen 600 mg tablet 600 mg PO Q8H PRN pain #20 tabs 12/11/20 valacyclovir 1 gram tablet 1,000 mg PO TID 7 days #21 tabs 12/11/20 amoxicillin 875 mg-potassium 1 tab PO Q12H #14 tabs 12/22/20 clavulanate 125 mg tablet (Augmentin) doxycycline hyclate 100 mg capsule 100 mg PO BID 10 days #20 caps 01/26/21 oxycodone 5 mg tablet 5 mg PO Q8H PRN pain #8 tabs 01/26/21 prednisone 20 mg tablet 40 mg PO DAILY 5 days #10 tabs 01/26/21 Allergies Allergy/AdvReac Type Severity Reaction Status Date / Time bee pollen [BEE STINGS] Allergy Unknown REDNESS Verified 07/30/21 21:01 AND SWELLING morphine [MORPHINE] Allergy Unknown RASH Verified 07/30/21 21:01 shrimp [SHRIMP] Allergy Unknown HIVES Verified 07/30/21 21:01 Review of Systems Review of Systems: Resolved palpitation Yes all other systems are reviewed and are negative PMFSH Past Medical History Medical History No active medical problems Social History Social History Alcohol intake: never Patient Tobacco Use Status: Current everyday Tobacco user Smoked in Last 30 Days: Yes Use of substances other than those prescribed or required for medical reasons: Yes Substance Use Type: Marijuana Advance Directives: No Physical Exam ED Vital Signs: Vital Signs - 24 hr 11/18/21 08:32 11/18/21 11:12 11/18/21 12:01 Temperature 98 F 98.6 F 98.6 F Pulse Rate 65 53 49 L Respiratory Rate 15 13 13 Blood Pressure 115/67 112/56 L 106/68 Pulse Oximetry 98 100 Oxygen Delivery Method Room Air Room Air Room Air BMI result Body Mass Index 21.2 Const General: cooperative, healthy appearing, comfortable, no acute distress, well developed, alert, awake and Physically active Orientation/consciousness: oriented to person, oriented to place, oriented to time and patient oriented x3 HENMT Head: Yes normal to inspection, Yes No palpable skull fracture present, Yes normocephalic, Yes atraumatic and No abrasion Eyes General: appearance normal, both eyes and all related structures Neck Neck: Yes normal visual inspection, Yes full ROM, Yes no lymphadenopathy, Yes no meningeal signs, Yes trachea midline, Yes supple, No anterior neck swelling and No tender Chest Chest palpation & inspection: normal inspection of the chest and normal palpation of entire chest wall Resp Effort & Inspection: normal respiratory effort and able to speak in complete sentences Auscultation: clear to auscultation bilaterally Cardio Jugular venous distension: no JVD Heart sounds: S1 normal heart sound present and S2 normal heart sound present GI Inspection: Yes normal to inspection and No abdominal wall ecchymosis Palpation (GI): Soft to palpation, not firm, nontender, no guarding and not rigid General: No CVA tenderness and Yes no CVA tenderness Back/Spine/Pelvis Back: no CVA tenderness, No CVA tenderness and No back tenderness Skin General skin exam: no rashes or lesions noted and elasticity normal Neuro General: oriented to person, oriented to place, oriented to time, patient oriented x3, gait normal, tone normal, moves all extremities, Normal light touch and pain sensation, no meningeal signs and CN's II-XI intact bilaterally Extrem Other: Lower extremities negative for swelling, pitting edema, or calf tenderness General: Yes normal to inspection and Yes full ROM Psych Appearance: grossly normal, well kempt and not disheveled Course Course Course Narrative: Patient presently asymptomatic. Will do EKG, cardiac evaluation, coags, BNP, and D-dimer. Reevaluation(s) Reevaluation #1: EKG negatives STEMI. First troponin negative. TSH negative. D-dimer negative. Perc score is 0. Chest x-ray negative for pneumonia. Heart score 0. Will do repeat troponin. CHest xray is normal Reevaluation #2: Second troponin negative. Patient heart rate went down to 49 on monitor on back up to 55. Patient does work out and run. Repeat EKG shows sinus bradycardia. Patient is asymptomatic. On ambulation heart rate goes up to 70. Patient is safe for discharge and will follow up with PCP.. Time: 13:44 Medical Decision Making MDM Narrative Medical decision making narrative: Palpitations Lab Data Result diagrams: 11/18/21 10:36 11/18/21 10:36 Labs: Lab Results 11/18/21 11/18/21 11/18/21 Range/Units 10:36 10:36 10:36 WBC 5.9 (4.8-10.8) X10*3/uL RBC 4.70 (4.60-5.80) X10*6/uL Hgb 14.4 (14.0-18.0) g/dl Hct 41.7 L (42.0-52.0) % MCV 88.7 (80.0-98.0) fL MCH 30.6 (27.0-33.0) pg MCHC 34.5 (31.0-36.0) g/dl RDW 13.3 (11.0-16.0) % Plt Count 216 (160-400) X10*3/uL MPV 9.2 L (9.4-12.4) fL Immature Gran % (Auto) 0.2 (0.0-0.4) % Neut % (Auto) 52.9 (45-73) % Lymph % (Auto) 30.6 (20-40) % [place] % (Auto) 7.8 (2-11) % Eos % (Auto) 7.3 H (0-4) % Baso % (Auto) 1.2 (0-2) % Lymph # (Auto) 1.8 (1.2-4.9) X10*3/uL [place] # (Auto) 0.5 (0.1-1.2) X10*3/uL Eos # (Auto) 0.4 (0.0-0.4) X10*3/uL Baso # (Auto) 0.1 (0.0-0.2) X10*3/uL Abs Immat Gran (auto) 0.01 (0.00-0.03) X10*3/uL Absolute Neuts (auto) 3.1 (2.0-8.3) x10*3/uL Absolute Nucleated RBC 0.000 (0.0-0.012) X10*3/uL Nucleated RBC % (auto) 0.0 (0.0-0.2) /100WBC PT (10.0-13.1) SEC INR (0.9-1.1) APTT (26.0-36.4) SEC D-Dimer High Sensitivty NG/ML Sodium 139 (135-145) mmol/L Potassium 4.6 (3.3-5.1) mmol/L Chloride 105 (96-108) mmol/L Carbon Dioxide 27 (22-29) mmol/L Anion Gap 12 (12-20) BUN 17 H (9-16) mg/dL Creatinine 0.78 (0.5-1.4) mg/dL Estim Creat Clear Calc 119.5 Estimated GFR > 60 Random Glucose 115 (60-115) mg/dL Calcium 9.0 (8.4-10.2) mg/dL Troponin I High Sens < 3.5 (<3.5-35.0) ng/L B-Natriuretic Peptide < 10 (<100) pg/mL TSH 0.56 (0.32-4.0) uIU/mL 11/18/21 11/18/21 Range/Units 11:25 12:38 WBC (4.8-10.8) X10*3/uL RBC (4.60-5.80) X10*6/uL Hgb (14.0-18.0) g/dl Hct (42.0-52.0) % MCV (80.0-98.0) fL MCH (27.0-33.0) pg MCHC (31.0-36.0) g/dl RDW (11.0-16.0) % Plt Count (160-400) X10*3/uL MPV (9.4-12.4) fL Immature Gran % (Auto) (0.0-0.4) % Neut % (Auto) (45-73) % Lymph % (Auto) (20-40) % [place] % (Auto) (2-11) % Eos % (Auto) (0-4) % Baso % (Auto) (0-2) % Lymph # (Auto) (1.2-4.9) X10*3/uL [place] # (Auto) (0.1-1.2) X10*3/uL Eos # (Auto) (0.0-0.4) X10*3/uL Baso # (Auto) (0.0-0.2) X10*3/uL Abs Immat Gran (auto) (0.00-0.03) X10*3/uL Absolute Neuts (auto) (2.0-8.3) x10*3/uL Absolute Nucleated RBC (0.0-0.012) X10*3/uL Nucleated RBC % (auto) (0.0-0.2) /100WBC PT 11.5 (10.0-13.1) SEC INR 1.0 (0.9-1.1) APTT 33.9 (26.0-36.4) SEC D-Dimer High Sensitivty < 150 NG/ML Sodium (135-145) mmol/L Potassium (3.3-5.1) mmol/L Chloride (96-108) mmol/L Carbon Dioxide (22-29) mmol/L Anion Gap (12-20) BUN (9-16) mg/dL Creatinine (0.5-1.4) mg/dL Estim Creat Clear Calc Estimated GFR Random Glucose (60-115) mg/dL Calcium (8.4-10.2) mg/dL Troponin I High Sens < 3.5 (<3.5-35.0) ng/L B-Natriuretic Peptide (<100) pg/mL TSH (0.32-4.0) uIU/mL ECG Data Interpretation: EKG: Normal sinus rhythm. Ventricular rate 65. HI interval 126. QRS 92. QTC 388. Negative STEMI EKG 2: NOrmal Sinus RHythm. Sinus bradycardia. Ventricular rate 49. HI interval 134. QRS 92. QTC 377. Negative STEMI Discharge Plan Discharge Clinical Impression: Palpitations Patient Disposition: Home, Self-Care Instructions: Heart Palpitations (DC) Additional Instructions: Your blood work, EKG, chest x-ray came back normal. Please follow-up with your primary care provider. Return to the ED for any chest pain, shortness of breath, shortness of breath on inspiration, leg swelling, calf pain, coughing up blood, fever, chills, or any other concerning symptoms. Prescriptions: No Action ondansetron 4 mg tablet,disintegrating 4 mg PO Q8H PRN (Reason: nausea and vomiting) Qty: 20 0RF valacyclovir 1 gram tablet 1,000 mg PO TID 7 Days Qty: 21 0RF ibuprofen 600 mg tablet 600 mg PO Q8H PRN (Reason: pain) Qty: 20 0RF amoxicillin-pot clavulanate [Augmentin] 875-125 mg tablet 1 tab PO Q12H Qty: 14 0RF doxycycline hyclate 100 mg capsule 100 mg PO BID 10 Days Qty: 20 0RF prednisone 20 mg tablet 40 mg PO DAILY 5 Days Qty: 10 0RF oxycodone 5 mg tablet 5 mg PO Q8H PRN (Reason: pain) Qty: 8 0RF Rx Instructions: Patient can partially fill prescription upon request Stand Alone Forms: Work/School Release Interventions: ED Discharge Assessment Last Done: 11/18/21 13:50 Discharge Date/Time: 11/18/21 13:51 Print Language: [place]
[2021-11-18 11:44] LABS: B Type Natriuretic Peptide < 10 pg/mL (<100)
[2021-11-18 11:58] LABS: Thyroid Stimulating Hormone 0.56 uIU/mL (0.32-4.0)
[2021-11-18 12:00] LABS: Prothrombin Time 11.5 SEC (10.0-13.1)
[2021-11-18 12:01] VITALS: BP 106/68; PULSE 49; RESP 13; TEMP 37
[2021-11-18 12:02] LABS: Partial Thromboplastin Time 33.9 SEC (26.0-36.4)
[2021-11-18 12:03] LABS: D Dimer High Sensitivity < 150 NG/ML
[2021-11-18 13:10] LABS: Troponin-I High Sensitivity < 3.5 ng/L (<3.5-35.0)
--- NOTE | 2021-11-18 13:37 | ECG_ITS ---
Test Reason : JAYESH Blood Pressure : / mmHG Vent. Rate : 049 BPM Atrial Rate : 049 BPM P-R Int : 134 ms QRS Dur : 092 ms QT Int : 418 ms P-R-T Axes : 067 061 044 degrees QTc Int : 377 ms Sinus bradycardia Otherwise normal ECG When compared with ECG of 18-NOV-2021 08:33, Heart rate has decreased Referred By: Alvarado Luis Electronically Signed By:AMMON JOSÉ
== END 2021-11-18 13:51 | disposition home or self-care (01) ==
PROVIDERS: Physician Assistant; Emergency Provider Emergency Medicine; PCP Internal Medicine
DX: R07.89 Other chest pain (principal); R00.2 Palpitations; R06.02 Shortness of breath; Z79.899 Other long term (current) drug therapy
CPT/HCPCS: 36415; 71046; 80048; 83880; 84443; 84484; 85025; 85379; 85610; 85730; 93005; 99283; 99284

== ENCOUNTER 2022-03-26 13:11 | Emergency (ER) | payer MEDICAID, SELFPAY ==
[2022-03-26 13:32] VITALS: BP 106/70; PULSE 61; RESP 18; TEMP 36.9; O2SAT 98; BMI 21.5
--- NOTE | 2022-03-26 13:33 | ED_ITS ---
HPI - URI/Sore Throat General Chief Complaint: Upper Respiratory Symptoms Stated Complaint: Flu Like Symptoms Source: patient Mode of arrival: ambulatory Limitations: no limitations History of Present Illness MD elicited complaint: cough, sore throat, rhinorrhea and nasal congestion Onset (ago): day(s) (2) Consistency: constant Severity: moderate Description of mucous: clear, watery and yellow Able to tolerate fluids by mouth: Yes Exacerbating factors: swallowing Relieving factors: nothing Context: sick contacts (Daughter tested positive for strep) Associated symptoms: chills, myalgias, headache, rhinorrhea, nasal congestion, sore throat and cough Treatments prior to arrival: none Related Data Previous Rx's Medication Instructions Recorded ondansetron 4 mg disintegrating 4 mg PO Q8H PRN nausea and 08/27/20 tablet vomiting #20 tabs ibuprofen 600 mg tablet 600 mg PO Q8H PRN pain #20 tabs 12/11/20 valacyclovir 1 gram tablet 1,000 mg PO TID 7 days #21 tabs 12/11/20 amoxicillin 875 mg-potassium 1 tab PO Q12H #14 tabs 12/22/20 clavulanate 125 mg tablet (Augmentin) doxycycline hyclate 100 mg capsule 100 mg PO BID 10 days #20 caps 01/26/21 oxycodone 5 mg tablet 5 mg PO Q8H PRN pain #8 tabs 01/26/21 prednisone 20 mg tablet 40 mg PO DAILY 5 days #10 tabs 01/26/21 amoxicillin 875 mg-potassium 1 tab PO BID 10 days #20 tabs 03/26/22 clavulanate 125 mg tablet Allergies Allergy/AdvReac Type Severity Reaction Status Date / Time bee pollen [BEE STINGS] Allergy Unknown REDNESS Verified 07/30/21 21:01 AND SWELLING morphine [MORPHINE] Allergy Unknown RASH Verified 07/30/21 21:01 shrimp [SHRIMP] Allergy Unknown HIVES Verified 07/30/21 21:01 Review of Systems Review of Systems: Constitutional : + chills/fatigue/malaise, No Weight loss, No Fever, No Night Sweats ENT/Mouth : + sore throat/nasal congestion/rhinorrhea, No Hearing loss, No Ear Pain, No Sinus Pain, No Hoarseness, No Swallowing Difficulty Eyes: No Eye Pain, No Swelling, No Redness, No Foreign Body, No Discharge, No Vision Changes Cardiovascular : No Chest Pain, No SOB, No Dyspnea on Exertion, No Orthopnea, No Edema, No Palpitations Respiratory : + Cough, No Sputum, No Wheezing, No Smoke Exposure, No Dyspnea Gastrointestinal : No Nausea, No Vomiting, No Diarrhea, No Constipation, No abdominal Pain, No Hematochezia, No Melena Genitourinary : no irregular bleeding, No Dysuria, No Urinary Frequency, No Hematuria, No Urinary Incontinence, No Urgency, No Flank Pain, No Urinary Flow Changes, No Hesitancy Musculoskeletal : No joint pain, + Myalgias, No Joint Swelling Skin : No Skin Lesions, No rash Neuro : No Weakness, No Numbness, No Paresthesias, No Loss of Consciousness, No Dizziness, No Headache Psych : No Anxiety/Panic, No Depression, No SI/HI/AH/VH, No Social Issues, Heme/Lymph: No Bruising, No Bleeding,No Lymphadenopathy Endocrine : No Polyuria, No Polydipsia, No Temperature Intolerance Yes all other systems are reviewed and are negative [facility] Past Medical History Attestation statement: The following information was validated with the patient. Source: old records reviewed and nursing notes reviewed Medical History No active medical problems Social History Social History Alcohol intake: never Patient Tobacco Use Status: Current everyday Tobacco user Substance Use Type: Marijuana Advance Directives: No Advance Directives Information Provided: No Physical Exam Vital Signs: Vital Signs: Vital signs reviewed. Blood pressure normal. Pulse normal. Respiration normal. Oxygen normal. Temperature normal. Appearance: Alert. Oriented X3. No acute distress. Head: Normal external exam. Normocephalic. Atraumatic. Eyes: PERRLA. EOMI. Conjunctiva and sclera normal. Eyelids normal. ENT: EAC normal. TM's Normal. Posterior pharynx/tonsils erythematous with exudate scattered bilaterally. Uvula midline. Moist mucous membranes. No lesions/ulcerations or masses noted on the tongue. Normal voice. No trismus noted. No drooling noted. No muffled voice noted. Neck: Normal inspection. Neck supple. FROM. No adenopathy. Thyroid Normal. No meningeal signs. CVS: Normal heart rate and rhythm. Heart sound normal. Pulses normal throughout. No murmurs/rales/gallops. Respiratory: No respiratory distress. Painless inspiration. Breath sounds normal. No wheezes/rales/rhonchi noted. Chest nontender. No accessory muscle usage noted or decreased air movement noted. Abdomen: Soft and nontender. Back: Full range of motion noted. Nontender. Skin: Skin warm and dry. Normal skin color. Normal skin turgor. No rashes/lesions/lacerations noted. Extremities: Extremities exhibit normal range of motion and nontender. Neuro: Oriented X 3. No motor deficit. No sensory deficit. Reflexes normal. Normal steady gait. No focal neuro deficits noted. CN's II-XII intact bilaterally? Vascular: + radial pulses. Normal cap refill. No cyanosis noted to upper extremity nails Course Course Course Narrative: 13:35PM - 41yoM presenting to the ED with compalints of chills, fatigue, malaise, sore throat, cough. His child has similar symptoms and tested positive for bacterial pharyngitis. He denies any other sick contacts. He denies any measured fevers, dizziness, neck pain/stiffness, trouble swallowing or breathing, abdominal pain, diarrhea constipation, vomiting or any other symptoms complaints or concerns at this time. Therefore at this time will test for bacterial pharyngitis, COVID/RSV/flu and patient will be sent home with antibiotics for bacterial pharyngitis and instructions return if any new or worsening symptoms to follow up with primary care provider. Patient understands agrees with this plan. Medical Decision Making Lab Data MDM Lab Attestation statement: I reviewed the patient's lab results. Discharge Plan Discharge Clinical Impression: Acute bacterial pharyngitis Patient Disposition: Home, Self-Care Instructions: Pharyngitis (ED) Prescriptions: New amoxicillin-pot clavulanate 875-125 mg tablet 1 tab PO BID 10 Days Qty: 20 0RF No Action ondansetron 4 mg tablet,disintegrating 4 mg PO Q8H PRN (Reason: nausea and vomiting) Qty: 20 0RF valacyclovir 1 gram tablet 1,000 mg PO TID 7 Days Qty: 21 0RF ibuprofen 600 mg tablet 600 mg PO Q8H PRN (Reason: pain) Qty: 20 0RF amoxicillin-pot clavulanate [Augmentin] 875-125 mg tablet 1 tab PO Q12H Qty: 14 0RF doxycycline hyclate 100 mg capsule 100 mg PO BID 10 Days Qty: 20 0RF prednisone 20 mg tablet 40 mg PO DAILY 5 Days Qty: 10 0RF oxycodone 5 mg tablet 5 mg PO Q8H PRN (Reason: pain) Qty: 8 0RF Rx Instructions: Patient can partially fill prescription upon request Referrals: Luther Martin III, MD [Primary Care Provider] - 3 days Stand Alone Forms: Work/School Release
[2022-03-26 14:06] LABS: IDNOW Serial# 6674DD1D; Strep A Nucleic Acid Negative (Negative)
[2022-03-26 14:23] LABS: Influenza A PCR NEGATIVE (Negative); Influenza B PCR NEGATIVE (Negative); Resp Syncy Virus RNA Qual PCR NEGATIVE (Negative); SARS COV2 PCR INHOUSE NEGATIVE (Negative)
== END 2022-03-26 13:43 | disposition home or self-care (01) ==
PROVIDERS: Physician Assistant Medical; Emergency Provider Student in an Organized Health Care Education/Training Program; PCP Internal Medicine
DX: J02.9 Acute pharyngitis, unspecified (principal); M79.10 Myalgia, unspecified site; R51.9 Headache, unspecified; Z20.822 Contact with and (suspected) exposure to COVID-19; Z20.828 Contact with and (suspected) exposure to other viral communicable diseases; Z79.899 Other long term (current) drug therapy
CPT/HCPCS: 0241U; 36415; 87651; 99282; 99283

== ENCOUNTER 2022-04-29 14:55 | Emergency (ER) | payer MEDICAID, SELFPAY ==
--- NOTE | ~2022-04-29 | XR_ITS ---
EXAMINATION: XR RIBS, RIGHT CLINICAL INFORMATION: Coughing, rib pain COMPARISON: Chest radiographs 11/18/2021, 07/30/2021 TECHNIQUE: Frontal view chest is performed along with 3 views of the right ribs. FINDINGS: There is no visible right rib fracture or rib destructive process. No pneumothorax or pneumomediastinum or subcutaneous emphysema. The lungs are clear. There is no pleural reaction, infiltrate, or effusion. The hilar and mediastinal contours are unremarkable. XR/XR ribs RT min 3V w CXR1V IMPRESSION: Unremarkable examination.
--- NOTE | 2022-04-29 15:19 | ED_ITS ---
HPI - Chest Pain General Chief Complaint: Back Pain/Injury <KUN Hinds - Last Filed: 04/29/22 15:23> Stated Complaint: R rib pain <KUN Hinds - Last Filed: 04/29/22 15:23> Time Seen by Provider: 04/29/22 15:29 <KUN Hinds - Last Filed: 04/29/22 15:23> Source: patient and RN notes reviewed <KUN Ochoa - Last Filed: 04/29/22 17:31> Mode of arrival: ambulatory <KUN Ochoa - Last Filed: 04/29/22 17:31> Limitations: no limitations <KUN Ochoa - Last Filed: 04/29/22 17:31> History of Present Illness HPI narrative: This is a 41-year-old male, with no significant past medical history, who presents the emergency department today with complaints of right-sided posterior rib pain which started last week after sneezing. Patient reports that he sneezed and immediately pain in his right posterior ribs/thoracic back. Patient reports that the pain worsens with movement as well as palpation and deep inspiration. Reports some shortness of breath. He otherwise denies any cough, fevers, chills, nausea, or diarrhea. Denies chest pain. Denies any other complaints or concerns at this time. <KUN Ochoa - Last Filed: 04/29/22 17:31> Onset (ago): week(s) <KUN Ochoa - Last Filed: 04/29/22 17:31> Timing of current episode: constant <KUN Ochoa - Last Filed: 04/29/22 17:31> Prior episodes: No <KUN Ochoa - Last Filed: 04/29/22 17:31> Pain radiation: none <KUN Ochoa - Last Filed: 04/29/22 17:31> Severity: moderate <KUN Ochoa - Last Filed: 04/29/22 17:31> Quality: aching <KUN Ochoa - Last Filed: 04/29/22 17:31> Relieving factors: nothing <KUN Ochoa - Last Filed: 04/29/22 17:31> Exacerbating factors: inspiration, palpation and movement <KUN Ochoa - Last Filed: 04/29/22 17:31> Treatment prior to arrival: none <KUN Ochoa - Last Filed: 04/29/22 17:31> Risk Factors Coronary artery disease risk factors: none <KUN Ochoa - Last Filed: 04/29/22 17:31> Thoracic aortic dissection risk factors: none <KUN Ochoa - Last Filed: 04/29/22 17:31> Related Data Home Medications: Previous Rx's Medication Instructions Recorded ondansetron 4 mg disintegrating 4 mg PO Q8H PRN nausea and 08/27/20 tablet vomiting #20 tabs ibuprofen 600 mg tablet 600 mg PO Q8H PRN pain #20 tabs 12/11/20 valacyclovir 1 gram tablet 1,000 mg PO TID 7 days #21 tabs 12/11/20 amoxicillin 875 mg-potassium 1 tab PO Q12H #14 tabs 12/22/20 clavulanate 125 mg tablet (Augmentin) doxycycline hyclate 100 mg capsule 100 mg PO BID 10 days #20 caps 01/26/21 oxycodone 5 mg tablet 5 mg PO Q8H PRN pain #8 tabs 01/26/21 prednisone 20 mg tablet 40 mg PO DAILY 5 days #10 tabs 01/26/21 amoxicillin 875 mg-potassium 1 tab PO BID 10 days #20 tabs 03/26/22 clavulanate 125 mg tablet cyclobenzaprine 10 mg tablet 10 mg PO TID PRN muscle spasm #14 04/29/22 tabs <KUN Hinds - Last Filed: 04/29/22 15:23> Allergies/Adverse Reactions: Allergies Allergy/AdvReac Type Severity Reaction Status Date / Time bee pollen [BEE STINGS] Allergy Unknown REDNESS Verified 07/30/21 21:01 AND SWELLING morphine [MORPHINE] Allergy Unknown RASH Verified 07/30/21 21:01 shrimp [SHRIMP] Allergy Unknown HIVES Verified 07/30/21 21:01 <KUN Hinds - Last Filed: 04/29/22 15:23> Review of Systems Review of Systems: Yes all other systems are reviewed and are negative <KUN Ochoa - Last Filed: 04/29/22 17:31> PENDING SALE TO [facility] Past Medical History Medical History: Medical History No active medical problems <KUN Hinds - Last Filed: 04/29/22 15:23> Social History Social History: Social History Alcohol intake: never Patient Tobacco Use Status: Current everyday Tobacco user Substance Use Type: Marijuana Advance Directives: No Advance Directives Information Provided: No <KUN Hinds - Last Filed: 04/29/22 15:23> Physical Exam Vital Signs: Vital Signs: Last Vital Signs Temp 98 F 04/29/22 15:20 Pulse 68 04/29/22 15:20 Resp 18 04/29/22 15:20 BP 133/69 04/29/22 15:20 Pulse Ox 98 04/29/22 15:20 O2 Del Method 04/29/22 15:20 BMI result Body Mass Index 21.8 <KUN Hinds - Last Filed: 04/29/22 15:23> Vital Signs: Last Vital Signs Temp 98 F 04/29/22 15:20 Pulse 68 04/29/22 15:20 Resp 18 04/29/22 15:20 BP 133/69 04/29/22 15:20 Pulse Ox 98 04/29/22 15:20 O2 Del Method 04/29/22 15:20 BMI result Body Mass Index 21.8 <KUN Ochoa - Last Filed: 04/29/22 17:31> Appearance: Alert. Oriented X3. No acute distress. HEENT: normal inspection CVS: Normal heart rate and rhythm. Pulses normal. Respiratory: No respiratory distress. Skin: Skin warm and dry. Normal skin color. Normal skin turgor. No rashes. Extremities: Tenderness to palpation overlying the right thoracic back with palpable muscle spasms. No midline spine tenderness. No overlying ecchymosis. Neuro: Oriented X 3. No motor deficit. No sensory deficit. <KUN Ochoa - Last Filed: 04/29/22 17:31> Course Course Course Narrative: RME--41yo M c/o right sided rib pain since Tuesday after sneezing. Admits pain worse with movement. Denies hematuria Right-sided posterior lateral rib tenderness noted. No flail chest X-ray and UA ordered <KUN Hinds - Last Filed: 04/29/22 15:23> Medical Decision Making Medical Decision Making MDM Narrative: This is a [id number]-male presenting with complaints of left thoracic back pain x 1 week after sneezing. Chest x-ray obtained and reviewed as unremarkable. Vital sign stable, symptoms consistent with thoracic back strain. Will treat with OTC motrin/tylenol and muscle relaxers. Encouraged gentle stretching and massage. Advised to return with any new or worsening symptoms. <KUN Ochoa - Last Filed: 04/29/22 17:31> Differential Diagnosis Differential Diagnoses: The differential diagnosis associated with the presentation includes <KUN Ochoa - Last Filed: 04/29/22 17:31> Rib fracture, costocondritis, thoracic muscle strain, sprain pneumothorax. <KUN Ochoa - Last Filed: 04/29/22 17:31> Independent Interpretation I performed an independent interpretation of an: Plain X-Ray <KUN Ochoa - Last Filed: 04/29/22 17:31> Interpretation: No fracture or pneumothorax visualized. <KUN Ochoa - Last Filed: 04/29/22 17:31> Radiology Impression Discussion of test interpretation with radiology: I have reviewed the radiologist's reading. <KUN Ochoa - Last Filed: 04/29/22 17:31> Radiologist Impression: XR/XR ribs RT min 3V w CXR1V IMPRESSION: Unremarkable examination. ? <KUN Ochoa - Last Filed: 04/29/22 17:31> External Record Review External record reviewed: Prior outpatient labs <KUN Ochoa - Last Filed: 04/29/22 17:31> Prescription Management I considered prescription management with: Pain Medication <KUN Ochoa - Last Filed: 04/29/22 17:31> Critical Care Time Critical Care Time Critical Care Time: No <KUN Ochoa Last Filed: 04/29/22 17:31> Discharge Plan Discharge Clinical Impression: Strain of thoracic back region <KUN Hinds Last Filed: 04/29/22 15:23> Patient Disposition: Home, Self-Care <KUN Hinds Last Filed: 04/29/22 15:23> Instructions: Muscle Strain (ED), Thoracic Back Strain (ED) <KUN Hinds Last Filed: 04/29/22 15:23> Additional Instructions: Your x-rays today showed no rib fracture. Take ibuprofen/tylenol as directed as needed for pain. Take prescribed muscle relaxer as directed as needed. Do not drink alcohol or drive while taking this medication as it may cause drowsiness. You likely stranger muscles while sneezing. You may apply cold/warm compresses for pain relief. Use whichever feels better. Gentle stretching and massage will help with pain relief. If you develop new or worsening symptoms call 911 or come back to the ER for further evaluation. <KUN Hinds Last Filed: 04/29/22 15:23> Prescriptions: New cyclobenzaprine 10 mg tablet 10 mg PO TID PRN (Reason: muscle spasm) Qty: 14 0RF No Action ondansetron 4 mg tablet,disintegrating 4 mg PO Q8H PRN (Reason: nausea and vomiting) Qty: 20 0RF valacyclovir 1 gram tablet 1,000 mg PO TID 7 Days Qty: 21 0RF ibuprofen 600 mg tablet 600 mg PO Q8H PRN (Reason: pain) Qty: 20 0RF amoxicillin-pot clavulanate [Augmentin] 875-125 mg tablet 1 tab PO Q12H Qty: 14 0RF amoxicillin-pot clavulanate 875-125 mg tablet 1 tab PO BID 10 Days Qty: 20 0RF doxycycline hyclate 100 mg capsule 100 mg PO BID 10 Days Qty: 20 0RF prednisone 20 mg tablet 40 mg PO DAILY 5 Days Qty: 10 0RF oxycodone 5 mg tablet 5 mg PO Q8H PRN (Reason: pain) Qty: 8 0RF Rx Instructions: Patient can partially fill prescription upon request <KUN Hinds Last Filed: 04/29/22 15:23> Stand Alone Forms: Work/School Release <KUN Hinds Last Filed: 04/29/22 15:23> Interventions: ED Discharge Assessment Last Done: 04/29/22 16:43 <KUN Hinds - Last Filed: 04/29/22 15:23> Discharge Date/Time: 04/29/22 16:43 <KUN Hinds - Last Filed: 04/29/22 15:23>
[2022-04-29 15:20] VITALS: BP 133/69; PULSE 68; RESP 18; TEMP 36.6; O2SAT 98; BMI 21.8
== END 2022-04-29 16:43 | disposition home or self-care (01) ==
PROVIDERS: Emergency Provider Emergency Medicine
DX: S29.012A Strain of muscle and tendon of back wall of thorax, initial encounter (principal); X50.9XXA Other and unspecified overexertion or strenuous movements or postures, initial encounter; R06.02 Shortness of breath; F17.200 Nicotine dependence, unspecified, uncomplicated; F12.90 Cannabis use, unspecified, uncomplicated; Y93.89 Activity, other specified; Y92.039 Unspecified place in apartment as the place of occurrence of the external cause; Y99.9 Unspecified external cause status
CPT/HCPCS: 71101; 99282; 99283

== ENCOUNTER 2022-07-02 11:47 | Emergency (ER) | payer MEDICAID, SELFPAY ==
--- NOTE | 2022-07-02 11:54 | ED_ITS ---
HPI - General Adult General Chief complaint: Dental/Oral Stated complaint: Dental Pain Time Seen by Provider: 07/02/22 11:58 Source: patient Mode of arrival: ambulatory Limitations: no limitations History of Present Illness HPI narrative: 41-year-old male with no significant past medical history presents to the emergency department with complaints of right low jaw and tooth pain times several days. He reports that he is not followed by a dentist but has known dental caries and poor dentition. He is concerned that he may have an abscess. He reports that he does occasionally smoke. He denies any difficulty swallowing or breathing, fever, chills, foul taste in his mouth, hoarse voice, or swelling of his right jaw or gums. Pertinent positives and negatives discussed HPI. Related Data Previous Rx's Medication Instructions Recorded ondansetron 4 mg disintegrating 4 mg PO Q8H PRN nausea and 08/27/20 tablet vomiting #20 tabs ibuprofen 600 mg tablet 600 mg PO Q8H PRN pain #20 tabs 12/11/20 valacyclovir 1 gram tablet 1,000 mg PO TID 7 days #21 tabs 12/11/20 amoxicillin 875 mg-potassium 1 tab PO Q12H #14 tabs 12/22/20 clavulanate 125 mg tablet (Augmentin) doxycycline hyclate 100 mg capsule 100 mg PO BID 10 days #20 caps 01/26/21 oxycodone 5 mg tablet 5 mg PO Q8H PRN pain #8 tabs 01/26/21 prednisone 20 mg tablet 40 mg PO DAILY 5 days #10 tabs 01/26/21 amoxicillin 875 mg-potassium 1 tab PO BID 10 days #20 tabs 03/26/22 clavulanate 125 mg tablet cyclobenzaprine 10 mg tablet 10 mg PO TID PRN muscle spasm #14 04/29/22 tabs Allergies Allergy/AdvReac Type Severity Reaction Status Date / Time bee pollen [BEE STINGS] Allergy Unknown REDNESS Verified 07/30/21 21:01 AND SWELLING morphine [MORPHINE] Allergy Unknown RASH Verified 07/30/21 21:01 shrimp [SHRIMP] Allergy Unknown HIVES Verified 07/30/21 21:01 Review of Systems Review of Systems: Yes all other systems are reviewed and are negative PMFSH Past Medical History Attestation statement: The following information was validated with the patient. Source: old records reviewed and nursing notes reviewed Medical History No active medical problems Social History Social History Alcohol intake: never Patient Tobacco Use Status: Current everyday Tobacco user Substance Use Type: Marijuana Advance Directives: No Advance Directives Information Provided: No Physical Exam ED Vital Signs: Vital Signs - 24 hr 07/02/22 11:55 Temperature 97.9 F Pulse Rate 62 Respiratory Rate 18 Blood Pressure 115/70 Pulse Oximetry 98 Oxygen Delivery Method Room Air BMI result Body Mass Index 22.1 Course Course Course Narrative: RME performed by Tierra Fuller PA-C. Patient is a 41 year old assigned male at presenting to the emergency department with right sided dental pain.Patient placed back in the waiting room pending room availability and results. Medical Decision Making Medical Decision Making [facility] Narrative: 1210: Old records reviewed for previous imaging, lab studies, ECGs, or notes. Patient was assessed the emergency department. No acute distress or toxicity noted. Patient is A&O x4, LS CTA, MELENDEZ x4 with good strength. HPI and PE consistent with acute right lower dental pain due to dental caries. Low suspicion for abscess at this time. Pt educated to follow up with a dentist for further evaluation and mangement and to prevent abscess. Patient is safe for discharge at this time with plan for [id number] Tylenol and/or NSAID such as ibuprofen or naproxen for fever/discomfort with dosing as per packaging. HPI, PE, diagnostics, and plan discussed with patient and family with no unanswered questions at this time. Strict return precautions given to return to the emergency department with new, worsening, or concerning emergent symptoms. Recommended to follow-up with there primary care provider in 24-48 hours for further treatment and management. Differential Diagnosis see above Discharge Plan Discharge Clinical Impression: Dental caries, Tooth ache Patient Disposition: Home, Self-Care Instructions: Toothache (ED) Prescriptions: No Action ondansetron 4 mg tablet,disintegrating 4 mg PO Q8H PRN (Reason: nausea and vomiting) Qty: 20 0RF valacyclovir 1 gram tablet 1,000 mg PO TID 7 Days Qty: 21 0RF ibuprofen 600 mg tablet 600 mg PO Q8H PRN (Reason: pain) Qty: 20 0RF amoxicillin-pot clavulanate [Augmentin] 875-125 mg tablet 1 tab PO Q12H Qty: 14 0RF amoxicillin-pot clavulanate 875-125 mg tablet 1 tab PO BID 10 Days Qty: 20 0RF doxycycline hyclate 100 mg capsule 100 mg PO BID 10 Days Qty: 20 0RF prednisone 20 mg tablet 40 mg PO DAILY 5 Days Qty: 10 0RF oxycodone 5 mg tablet 5 mg PO Q8H PRN (Reason: pain) Qty: 8 0RF Rx Instructions: Patient can partially fill prescription upon request cyclobenzaprine 10 mg tablet 10 mg PO TID PRN (Reason: muscle spasm) Qty: 14 0RF Referrals: [facility] Family Medicine [Provider Group] [facility] Primary CareAlfredo [Provider Group] [facility] Primary CareTorsten [Provider Group] Stand Alone Forms: Work/School Release Interventions: ED Discharge Assessment Last Done: 07/02/22 12:14 Discharge Date/Time: 07/02/22 12:14 Print Language: Upper Sorbian
[2022-07-02 11:55] VITALS: BP 115/70; PULSE 62; RESP 18; TEMP 36.6; O2SAT 98; BMI 22.1
== END 2022-07-02 12:14 | disposition home or self-care (01) ==
PROVIDERS: Emergency Provider Emergency Medicine Emergency Medical Services; PCP Internal Medicine
DX: K02.9 Dental caries, unspecified (principal); K08.89 Other specified disorders of teeth and supporting structures; Z79.899 Other long term (current) drug therapy
CPT/HCPCS: 99282

== ENCOUNTER 2022-08-25 10:39 | Emergency (ER) | payer MEDICAID, SELFPAY ==
[2022-08-25 10:46] VITALS: BP 125/82; PULSE 75; RESP 16; TEMP 36.4; O2SAT 99; BMI 19.0
[2022-08-25] MEDS: Ketorolac Tromethamine 30 MG/ML VIAL IM (11:46)
--- NOTE | 2022-08-25 11:59 | ED.DENTAL ---
HPI - Dental/Oral General Chief complaint: Dental/Oral Stated complaint: Dental pain Time Seen by Provider: 08/25/22 11:01 Source: patient, RN notes reviewed and old records reviewed Mode of arrival: ambulatory History of Present Illness HPI Narrative: 41-year-old male with no significant past medical history presenting to the ED complaining of left lower dental pain radiating to face/neck x last night with mild sore throat. Reports chronically broken teeth, denies recent dental procedure/facial trauma, fever/chills, ear pain, drainage from your, difficulty or inability to swallow Related Data Previous Rx's Medication Instructions Recorded ondansetron 4 mg disintegrating 4 mg PO Q8H PRN nausea and 08/27/20 tablet vomiting #20 tabs ibuprofen 600 mg tablet 600 mg PO Q8H PRN pain #20 tabs 12/11/20 valacyclovir 1 gram tablet 1,000 mg PO TID 7 days #21 tabs 12/11/20 amoxicillin 875 mg-potassium 1 tab PO Q12H #14 tabs 12/22/20 clavulanate 125 mg tablet (Augmentin) doxycycline hyclate 100 mg capsule 100 mg PO BID 10 days #20 caps 01/26/21 oxycodone 5 mg tablet 5 mg PO Q8H PRN pain #8 tabs 01/26/21 prednisone 20 mg tablet 40 mg PO DAILY 5 days #10 tabs 01/26/21 amoxicillin 875 mg-potassium 1 tab PO BID 10 days #20 tabs 03/26/22 clavulanate 125 mg tablet cyclobenzaprine 10 mg tablet 10 mg PO TID PRN muscle spasm #14 04/29/22 tabs Allergies Allergy/AdvReac Type Severity Reaction Status Date / Time bee pollen [BEE STINGS] Allergy Unknown REDNESS Verified 08/25/22 10:46 AND SWELLING morphine [MORPHINE] Allergy Unknown RASH Verified 08/25/22 10:46 shrimp [SHRIMP] Allergy Unknown HIVES Verified 08/25/22 10:46 Review of Systems Review of Systems: Constitutional: No Fever, No Chills ENT/Mouth: +dental pain, No Ear Pain, No Nasal Congestion, No Sinus Pain, No Hoarseness, + sore throat, No Rhinorrhea, No Swallowing Difficulty Cardiovascular: No Chest Pain, No SOB Respiratory: No Cough, No Sputum Gastrointestinal: No Nausea, No Vomiting, No Diarrhea, No Constipation, No Abdominal pain Musculoskeletal: No joint pain, No Myalgias, No Joint Swelling Skin: No Skin Lesions, No rash Neuro: No Weakness Yes all other systems are reviewed and are negative Constitutional: Constitutional: Reports as per [facility] Past Medical History Attestation statement: The following information was validated with the patient. Source: old records reviewed Medical History No active medical problems Social History Social History Alcohol intake: never Patient Tobacco Use Status: Current everyday Tobacco user Smoked in Last 30 Days: Yes Use of substances other than those prescribed or required for medical reasons: Yes Substance Use Type: Marijuana Substance Use Frequency: Daily Last Used Substance: Days (ago) Advance Directives: No Physical Exam Vital Signs: Vital Signs: Last Vital Signs Temp 97.6 F 08/25/22 10:46 Pulse 75 08/25/22 10:46 Resp 16 08/25/22 10:46 BP 125/82 08/25/22 10:46 Pulse Ox 99 08/25/22 10:46 O2 Del Method Room Air 08/25/22 10:46 BMI result Body Mass Index 19.0 Const: General: cooperative, healthy appearing, no acute distress, alert and awake Orientation/consciousness: patient oriented x3 Limitations: no limitations HEENT: Other: Left lower 3rd molar cracked/missing with noted gingival erythema/swelling and tenderness. No fluctuance/induration. Poor dentition. Head: Yes normal to inspection and Yes atraumatic Ears: hearing grossly normal bilaterally, external ears normal and unable to visualize TM bilaterally (Cerumen impaction) General nose exam: Normal external nose present Face and sinus: Yes normal facial exam Teeth and gingiva: poor dentition Throat: Yes posterior oropharynx normal, Yes tonsils normal, Yes uvula midline, No peritonsillar mass and No uvular edema Eyes: General: appearance normal, both eyes and all related structures EOM: EOMs intact bilaterally Neck: Neck: Yes normal visual inspection, Yes no meningeal signs, Yes supple, No anterior neck swelling and No torticollis Resp: Effort & Inspection: normal respiratory effort and no respiratory distress Cardio: Rate: regular rate Skin: Rashes: no rashes Wounds: no wounds Neuro: General: patient oriented x3, tone normal and no meningeal signs Gait exam (Neuro): Normal gait present Extrem: General: Yes normal to inspection Medications Administered Discontinued Medications Generic Name Dose Route Start Last Admin Trade Name Freq PRN Reason Stop Dose Admin Ketorolac Tromethamine 30 mg 08/25/22 11:42 08/25/22 11:46 Ketorolac Tromethamine 30 Mg/Ml Vial IM 08/25/22 11:43 30 mg ONCE ONE Administration Medical Decision Making Medical Decision Making MDM Narrative: 41-year-old male with no significant past medical history presenting to the ED complaining of left lower dental pain radiating to face/neck x last night with mild sore throat. On exam vital signs stable, NAD, nontoxic appearing, poor dentition. Left lower 3rd molar with diffuse gingival erythema/swelling and tenderness, no appreciable abscess. Concern for dental/gingival infection. , lower suspicion for strep pharyngitis, uvula midline, unlikely mastoiditis Plan: P.o. antibiotics, dentistry follow-up Please refer to course for remaining clinical decision making, interpretation of labs/imaging results, and discussions with consultants and/or family members. Differential Diagnosis Differential Diagnoses: The differential diagnosis associated with the presentation includes As above External Record Review External record reviewed: Inpatient record, Office record, Outpatient record, Prior outpatient labs, Prior outpatient radiology, Primary care record and Outside ED record Tests considered The following testing was considered but not selected: As above Prescription Management I considered prescription management with: Pain Medication and Antibiotic Discharge Plan Discharge Clinical Impression: Dental infection Patient Disposition: Home, Self-Care Instructions: Toothache (ED) Additional Instructions: Augmentin is an antibiotic please take as prescribed. Take Tylenol /Motrin for pain Please follow-up with a dentist Prescriptions: No Action ondansetron 4 mg tablet,disintegrating 4 mg PO Q8H PRN (Reason: nausea and vomiting) Qty: 20 0RF valacyclovir 1 gram tablet 1,000 mg PO TID 7 Days Qty: 21 0RF ibuprofen 600 mg tablet 600 mg PO Q8H PRN (Reason: pain) Qty: 20 0RF amoxicillin-pot clavulanate [Augmentin] 875-125 mg tablet 1 tab PO Q12H Qty: 14 0RF amoxicillin-pot clavulanate 875-125 mg tablet 1 tab PO BID 10 Days Qty: 20 0RF doxycycline hyclate 100 mg capsule 100 mg PO BID 10 Days Qty: 20 0RF prednisone 20 mg tablet 40 mg PO DAILY 5 Days Qty: 10 0RF oxycodone 5 mg tablet 5 mg PO Q8H PRN (Reason: pain) Qty: 8 0RF Rx Instructions: Patient can partially fill prescription upon request cyclobenzaprine 10 mg tablet 10 mg PO TID PRN (Reason: muscle spasm) Qty: 14 0RF Referrals: Sai Juarez [Dentist] - Jaxon Ugarte DMD [Dentist] - Naveen Melendez DMD [Dentist] -
== END 2022-08-25 12:20 | disposition home or self-care (01) ==
PROVIDERS: Emergency Provider Emergency Medicine; PCP Internal Medicine
DX: K04.7 Periapical abscess without sinus (principal); K08.89 Other specified disorders of teeth and supporting structures; F17.200 Nicotine dependence, unspecified, uncomplicated; F12.90 Cannabis use, unspecified, uncomplicated
CPT/HCPCS: 96372; 99284; J1885

== ENCOUNTER 2023-02-16 08:12 | Emergency (ER) | payer MEDICAID, SELFPAY ==
--- NOTE | ~2023-02-16 | XR_ITS ---
EXAMINATION: XR CHEST 2 VIEW CLINICAL INFORMATION: Possible seizure, altered mental status COMPARISON: 04/29/2022 TECHNIQUE: PA and lateral views of the chest obtained. FINDINGS: The lungs are hyperinflated but clear. There are no pleural effusions. The cardiomediastinal silhouette is normal. XR/XR chest 2V IMPRESSION: No acute cardiopulmonary disease.
--- NOTE | ~2023-02-16 | CT_ITS ---
EXAMINATION: CT HEAD WITHOUT CONTRAST CLINICAL INFORMATION: Possible seizure COMPARISON: None available. TECHNIQUE: Contiguous axial imaging was performed from the skull base to vertex without intravenous administration of contrast. This CT examination was performed using dose optimization techniques as appropriate, variously including the following: *Automated exposure control *Adjustment of mA and/or kV according to patient size (this includes techniques or standardized protocols for targeted exams where dose is matched to indication/reason for exam; i.e. extremities or head) *Use of iterative reconstruction technique DLP: 582.00 mGy-cm FINDINGS: The ventricles and sulci are normal in size and configuration. No acute hemorrhage, mass effect or shift is evident. Miner-white differentiation is maintained. In the posterior fossa, the brainstem, cerebellum and fourth ventricle image normally. The orbits and calvarium are intact. The paranasal sinuses and mastoid air cells are well pneumatized and clear. CT/CT head/brain wo IV con IMPRESSION: 1. Unremarkable noncontrast brain CT. No acute hemorrhage, mass effect or shift.
[2023-02-16 08:13] VITALS: BP 132/84; PULSE 72; RESP 18; TEMP 37.6; O2SAT 98; BMI 19.5
--- NOTE | 2023-02-16 08:23 | ED.GENADULT ---
HPI - General Adult General Chief complaint: General Medical Stated complaint: ? Seizure Time Seen by Provider: 02/16/23 08:23 Source: patient Mode of arrival: ambulatory Limitations: no limitations History of Present Illness HPI narrative: Patient is a 42 year old assigned male at with no reported medical history presenting to the emergency department today with a headache. Patient states that this morning he had an episode of feeling his whole body get tense and shivering, then got a headache. Patient states that he stayed conscious for the entire episode and did not have any episode of confusion. Patient denies any dizziness, lightheadedness, abdominal pain, nausea, vomiting, fever, chills, blurry vision, double vision, loss of vision, chest pain, difficulty breathing, shortness of breath, back pain, night sweats, pain with urination, increased urinary frequency, increased urinary urgency, blood in his urine or stool, syncope or a near syncopal episode, recent trauma or falls, bowel incontinence, bladder incontinence, bowel retention, bladder retention, or any other complaints at this time. Onset (ago): hour(s) Severity: mild Relieving factors: none Exacerbating factors: none Associated symptoms: denies other symptoms Treatments prior to arrival: none Related Data Previous Rx's Medication Instructions Recorded ondansetron 4 mg disintegrating 4 mg PO Q8H PRN nausea and 08/27/20 tablet vomiting #20 tabs ibuprofen 600 mg tablet 600 mg PO Q8H PRN pain #20 tabs 12/11/20 valacyclovir 1 gram tablet 1,000 mg PO TID 7 days #21 tabs 12/11/20 amoxicillin 875 mg-potassium 1 tab PO Q12H #14 tabs 12/22/20 clavulanate 125 mg tablet (Augmentin) doxycycline hyclate 100 mg capsule 100 mg PO BID 10 days #20 caps 01/26/21 oxycodone 5 mg tablet 5 mg PO Q8H PRN pain #8 tabs 01/26/21 prednisone 20 mg tablet 40 mg (2 x 20 mg) PO DAILY 5 days 01/26/21 #10 tabs amoxicillin 875 mg-potassium 1 tab PO BID 10 days #20 tabs 03/26/22 clavulanate 125 mg tablet cyclobenzaprine 10 mg tablet 10 mg PO TID PRN muscle spasm #14 04/29/22 tabs amoxicillin 875 mg-potassium 1 tab PO BID 7 days #14 tabs 08/25/22 clavulanate 125 mg tablet Allergies Allergy/AdvReac Type Severity Reaction Status Date / Time bee pollen [BEE STINGS] Allergy Unknown REDNESS Verified 02/16/23 08:18 AND SWELLING morphine [MORPHINE] Allergy Unknown RASH Verified 02/16/23 08:18 shrimp [SHRIMP] Allergy Unknown HIVES Verified 02/16/23 08:18 Review of Systems Constitutional: Constitutional: Reports no additional constitutional complaints, Denies chills, Denies fever(s), Reports headache(s) and Denies night sweats Eyes: Eyes: Reports no additional eye complaints, Denies blurry vision, Denies change in vision, Denies diplopia, Denies eye discharge, Denies loss of vision and Denies eye pain ENT: Denies dizziness and Reports headache(s) Cardiovascular: Cardiovascular: Reports no additional cardiovascular complaints, Denies chest pain, Denies lightheadedness, Denies Loss of Consciousness and Denies dyspnea Respiratory: Respiratory: Reports no additional respiratory complaints and Denies dyspnea Gastrointestinal: Gastrointestinal: Reports no additional gastrointestinal complaints, Denies abdominal pain, Denies melena, Denies hematochezia, Denies change in bowel habits and Denies change in stool character Genitourinary: Genitourinary: Reports no additional male genitourinary complaints, Denies hematuria, Denies oliguria, Denies difficulty urinating, Denies dysuria, Denies urinary frequency, Denies urinary hesitancy, Denies urinary incontinence and Denies urinary urgency Musculoskeletal: Musculoskeletal: Reports no additional musculoskeletal complaints, Denies numbness and Denies tingling Neurologic: Denies dizziness, Reports headache(s), Denies loss of vision, Denies numbness and Denies tingling Psychiatric: Psychiatric: Reports no additional psychiatric complaints Endocrine: Endocrine: Reports no additional endocrine complaints Hematologic/Lymphatic: Hematologic/Lymphatic: Reports no additional hematologic/lymphatic complaints Allergic/Immunologic: Allergic/Immunologic: Reports no additional allergic/immunologic complaints PMFSH Past Medical History Attestation statement: The following information was validated with the patient. Source: old records reviewed and nursing notes reviewed Onset Date is defined in the Problem List Problems that require an onset date and time if occurred within 24 hrs of arrival to the ED Aortic Dissection and Rupture; Neurologic impairment; Cardiopulmonary Arrest; Endotracheal Intubation; Insertion or Replacement of Mechanical Circulatory Assist Device Medical History No active medical problems Social History Social History Alcohol intake: never Patient Tobacco Use Status: Current everyday Tobacco user Smoked in Last 30 Days: Yes Use of substances other than those prescribed or required for medical reasons: Yes Substance Use Type: Marijuana Advance Directives: No Physical Exam ED Vital Signs: Vital Signs - 24 hr 02/16/23 08:13 02/16/23 08:52 Temperature 99.7 F Pulse Rate 72 66 Respiratory Rate 18 16 Blood Pressure 132/84 117/72 Pulse Oximetry 98 100 Oxygen Delivery Method Room Air Room Air BMI result Body Mass Index 19.5 Const General: cooperative, no acute distress, alert and awake Nutritional Appearance: well nourished Orientation/consciousness: patient oriented x3 Limitations: no limitations HENMT Head: Yes normal to inspection and Yes atraumatic Ears: hearing grossly normal bilaterally and external ears normal General nose exam: Normal external nose present, no nasal discharge noted and no epistaxis Face and sinus: Yes normal facial exam, No abrasion and No laceration Mouth: Normal oral and palatal mucosa present, no drooling and no muffled voice Eyes General: appearance normal, both eyes and all related structures Periorbital: periorbital findings normal Eyelids: Yes eyelids normal Conjunctivae: conjunctivae normal Pupils: Equal, round and reactive pupils present EOM: EOMs intact bilaterally Neck Neck: Yes normal visual inspection, Yes full ROM and Yes no lymphadenopathy Chest Chest palpation & inspection: normal inspection of the chest Resp Effort & Inspection: normal respiratory effort and able to speak in complete sentences GI Inspection: Yes normal to inspection Neuro General: patient oriented x3 and moves all extremities Cranial nerves: Yes Equal, round and reactive pupils present Cognition (Neuro): normal cognition Motor exam (neuro): 5/5 motor strength present throughout Sensory Exam: Normal double simultaneous stimulation for sensation Coordination: [id number] test normal Extrem General: Yes normal to inspection, Yes full ROM and Yes capillary refill normal Psych Appearance: grossly normal Mental Status: mental status grossly normal Affect: normal affect Attitude: cooperative Thought process: Normal thought process present Thought content: Normal thought content present Insight: Good insight present (Psych) Medications Administered Discontinued Medications Generic Name Dose Route Start Last Admin Trade Name Amber PRN Reason Stop Dose Admin Sodium Chloride 1,000 mls @ 999 mls/hr 02/16/23 08:45 02/16/23 09:07 Ns IV 02/16/23 09:45 999 mls/hr .Q1H1M DRE Administration Ketorolac Tromethamine 15 mg 02/16/23 08:45 02/16/23 09:09 Ketorolac Tromethamine 15 Mg/Ml Vial IVPUSH 02/16/23 08:46 15 mg ONCE ONE Administration Medical Decision Making Medical Decision Making [facility] Narrative: Patient is a 42 year old assigned male at with no reported medical history presenting to the emergency department today with a headache and a possible seizure. Patient's physical exam was unremarkable. Patient's blood work showed an elevated WBC count of 14 however, the rest of his labs are negative. This WBC elevation is likely secondary to a stress reaction rather than an infectious process. Patient's urine showed no acute process. Patient's chest x-ray and head CT showed no acute process. I explained my physical exam findings as well as all test results to the patient. I answered all questions asked by the patient. I stressed the importance of the patient taking his medication as prescribed. I stressed the importance of the patient following up with his primary care provider. I stressed the importance of the patient returning to the emergency department immediately if his symptoms were to worsen or if he were to develop any dizziness, shortness of breath, difficulty breathing, chest pain, blurry vision, loss of vision, nausea, vomiting, abdominal pain, fever, chills, back pain, or any other complaints. Patient verbalized agreement and understanding with this treatment plan and discharge. Differential Diagnosis Differential Diagnoses: The differential diagnosis associated with the presentation includes Headache COVID-19 Influenza RSV Viral illness Admission/Observation Consideration of admission/observation: Escalation of care including admission/observation considered Patient would have been admitted to the hospital had his work up had any findings where hospital admission was appropriate and his clinical presentation warranted hospital admission. Lab Data [facility] Lab Attestation statement: I reviewed the patient's lab results. My interpretation of these results are in the [facility] Rationale portion of this note. 02/16/23 08:50 02/16/23 08:50 Labs: Lab Results 02/16/23 02/16/23 Range/Units 08:29 08:50 WBC 14.0 H (4.8-10.8) X10*3/uL RBC 4.66 (4.60-5.80) X10*6/uL Hgb 14.5 (14.0-18.0) g/dl Hct 42.0 (42.0-52.0) % MCV 90.1 (80.0-98.0) fL MCH 31.1 (27.0-33.0) pg MCHC 34.5 (31.0-36.0) g/dl RDW 13.8 (11.0-16.0) % Plt Count 215 (160-400) X10*3/uL MPV 9.6 (9.4-12.4) fL Immature Gran % (Auto) 0.5 H (0.0-0.4) % Neut % (Auto) 86.7 H (45-73) % Lymph % (Auto) 5.4 L (20-40) % [place] % (Auto) 6.9 (2-11) % Eos % (Auto) 0.1 (0-4) % Baso % (Auto) 0.4 (0-2) % Lymph # (Auto) 0.8 L (1.2-4.9) X10*3/uL [place] # (Auto) 1.0 (0.1-1.2) X10*3/uL Eos # (Auto) 0.0 (0.0-0.4) X10*3/uL Baso # (Auto) 0.1 (0.0-0.2) X10*3/uL Abs Immat Gran (auto) 0.07 H (0.00-0.03) X10*3/uL Absolute Neuts (auto) 12.1 H (2.0-8.3) x10*3/uL Absolute Nucleated RBC 0.000 (0.0-0.012) X10*3/uL Nucleated RBC % (auto) 0.0 (0.0-0.2) /100WBC Sodium 137 (135-145) mmol/L Potassium 4.1 (3.3-5.1) mmol/L Chloride 107 (96-108) mmol/L Carbon Dioxide 26 (22-29) mmol/L Anion Gap 8 L (12-20) BUN 13 (9-16) mg/dL Creatinine 0.88 (0.5-1.4) mg/dL Estim Creat Clear Calc 97.9 Estimated GFR > 60 Random Glucose 113 (60-115) mg/dL Lactic Acid 0.7 (0.5-2.0) mmol/L Calcium 9.5 (8.4-10.2) mg/dL Total Bilirubin 0.4 (0.0-1.0) mg/dL Direct Bilirubin 0.2 (0.0-0.5) mg/dL AST 24 (5-37) U/L ALT 26 (0-40) U/L Alkaline Phosphatase 67 (39-117) U/L Total Protein 7.7 (6.5-8.0) g/dL Albumin 4.4 (3.5-5.0) g/dL Lipase 35 (8-78) U/L Urine Color Yellow Urine Appearance Clear Urine pH 5.5 (5.0-9.0) Ur Specific [place] 1.025 (1.005-1.025) Urine Protein Negative (Neg-Trace) mg/dL Urine Glucose (UA) Negative (Negative) mg/dL Urine Ketones Trace (Negative) mg/dL Urine Blood Negative (Negative) Urine Nitrite Negative (Negative) Ur Leukocyte Esterase Negative (Negative) Influenza Type A (PCR) NEGATIVE (Negative) Influenza Type B (PCR) NEGATIVE (Negative) RSV RNA Qual (PCR) NEGATIVE (Negative) SARS-CoV-2 RNA (RT-PCR) NEGATIVE (Negative) Independent Interpretation I performed an independent interpretation of an: Plain X-Ray and CT Scan Interpretation: My interpretation is in agreement with the radiologist's impression of these imaging studies. EXAMINATION: XR CHEST 2 VIEW CLINICAL INFORMATION: Possible seizure, altered mental status COMPARISON: 04/29/2022 TECHNIQUE: PA and lateral views of the chest obtained. FINDINGS: The lungs are hyperinflated but clear. There are no pleural effusions. The cardiomediastinal silhouette is normal. XR/XR chest 2V IMPRESSION: No acute cardiopulmonary disease. Dictated By: Harshal Hale MD Signed By: Electronically signed by Harshal Hale MD 02/16/23 0918 EXAMINATION: CT HEAD WITHOUT CONTRAST CLINICAL INFORMATION: Possible seizure COMPARISON: None available. TECHNIQUE: Contiguous axial imaging was performed from the skull base to vertex without intravenous administration of contrast. This CT examination was performed using dose optimization techniques as appropriate, variously including the following: *Automated exposure control *Adjustment of mA and/or kV according to patient size (this includes techniques or standardized protocols for targeted exams where dose is matched to indication/reason for exam; i.e. extremities or head) *Use of iterative reconstruction technique DLP: 582.00 mGy-cm FINDINGS: The ventricles and sulci are normal in size and configuration. No acute hemorrhage, mass effect or shift is evident. Miner-white differentiation is maintained. In the posterior fossa, the brainstem, cerebellum and fourth ventricle image normally. The orbits and calvarium are intact. The paranasal sinuses and mastoid air cells are well pneumatized and clear. CT/CT head/brain wo IV con IMPRESSION: 1. Unremarkable noncontrast brain CT. No acute hemorrhage, mass effect or shift. Dictated By: Harshal Hale MD Signed By: Electronically signed by Harshal Hale MD 02/16/23 0909 Radiology Impression Discussion of test interpretation with radiology: I have reviewed the radiologist's reading. Discharge Plan Discharge Clinical Impression: Headache Patient Disposition: Home, Self-Care Instructions: Acute Headache (DC) Additional Instructions: Follow up with your primary care provider. Return to the emergency department immediately if your symptoms worsen or if you develop any dizziness, shortness of breath, difficulty breathing, chest pain, blurry vision, loss of vision, nausea, vomiting, abdominal pain, fever, chills, back pain, or any other complaints. Prescriptions: No Action ondansetron 4 mg tablet,disintegrating 4 mg PO Q8H PRN (Reason: nausea and vomiting) Qty: 20 0RF valacyclovir 1 gram tablet 1,000 mg PO TID 7 Days Qty: 21 0RF ibuprofen 600 mg tablet 600 mg PO Q8H PRN (Reason: pain) Qty: 20 0RF amoxicillin-pot clavulanate [Augmentin] 875-125 mg tablet 1 tab PO Q12H Qty: 14 0RF amoxicillin-pot clavulanate 875-125 mg tablet 1 tab PO BID 10 Days Qty: 20 0RF doxycycline hyclate 100 mg capsule 100 mg PO BID 10 Days Qty: 20 0RF prednisone 20 mg tablet 40 mg PO DAILY 5 Days Qty: 10 0RF oxycodone 5 mg tablet 5 mg PO Q8H PRN (Reason: pain) Qty: 8 0RF Rx Instructions: Patient can partially fill prescription upon request cyclobenzaprine 10 mg tablet 10 mg PO TID PRN (Reason: muscle spasm) Qty: 14 0RF amoxicillin-pot clavulanate 875-125 mg tablet 1 tab PO BID 7 Days Qty: 14 0RF Referrals: Luther Martin III, MD [Primary Care Provider] - Stand Alone Forms: Work/School Release Print Language: Maori
[2023-02-16 08:49] LABS: Appearance Urine Clear; Color Urine Yellow; Glucose Urine UA Negative (Negative); Leukocyte Esterase Urine Negative (Negative); Nitrite Urine Negative (Negative); PH 5.5 (5.0-9.0); Specific Gravity - Urine 1.025 (1.005-1.025); Urine Blood Negative (Negative); Urine Ketones Trace mg/dL (Negative); Urine Protein Negative (Neg-Trace)
[2023-02-16 08:52] VITALS: BP 117/72; PULSE 66; RESP 16; O2SAT 100
[2023-02-16 08:56] LABS: MANUAL DIFF FLAG NO
[2023-02-16 08:59] LABS: Basophils Absolute Auto 0.1 X10*3/uL (0.0-0.2); Basophils Percent Auto 0.4 % (0-2); Eosinophils Percent Auto 0.1 % (0-4); Hemoglobin 14.5 g/dl (14.0-18.0); Imm Gran Abs Auto 0.07 X10*3/uL (0.00-0.03); Imm Gran Pct Auto 0.5 % (0.0-0.4); Lymphocytes Absolute Auto 0.8 X10*3/uL (1.2-4.9); Lymphocytes Percent Auto 5.4 % (20-40); Mean Corpuscular HGB Conc 34.5 g/dl (31.0-36.0); Mean Corpuscular Hemoglobin 31.1 pg (27.0-33.0); Mean Corpuscular Volume 90.1 fL (80.0-98.0); Mean Platelet Volume 9.6 fL (9.4-12.4); Monocytes Percent Auto 6.9 % (2-11); Neutrophils Absolute Auto 12.1 x10*3/uL (2.0-8.3); Neutrophils Percent Auto 86.7 % (45-73); Platelet Count 215 X10*3/uL (160-400); Red Blood Count 4.66 X10*6/uL (4.60-5.80); Red Cell Distribution Width 13.8 % (11.0-16.0)
[2023-02-16] MEDS: 0.9 % Sodium Chloride 1,000 ML 999 ML IV (09:07)
[2023-02-16] MEDS: Ketorolac Tromethamine 15 MG/ML VIAL IVPUSH (09:09)
[2023-02-16 09:11] LABS: Lactic Acid 0.7 mmol/L (0.5-2.0)
[2023-02-16 09:16] LABS: Alanine Aminotransferase 26 U/L (0-40); Albumin Level 4.4 g/dL (3.5-5.0); Alkaline Phosphatase 67 U/L (39-117); Anion Gap 8 (12-20); Aspartate Amino Transferase 24 U/L (5-37); Bilirubin Direct 0.2 mg/dL (0.0-0.5); Bilirubin Total 0.4 mg/dL (0.0-1.0); Blood Urea Nitrogen 13 mg/dL (9-16); Calcium 9.5 mg/dL (8.4-10.2); Carbon Dioxide 26 mmol/L (22-29); Chloride 107 mmol/L (96-108); Creatinine Clr Calc Pharmacy 97.9; Estimated Glomerular Filt Rate > 60; Glucose Random 113 mg/dL (60-115); Lipase 35 U/L (8-78); Potassium 4.1 mmol/L (3.3-5.1); Sodium 137 mmol/L (135-145); Total Protein 7.7 g/dL (6.5-8.0)
--- NOTE | 2023-02-16 09:19 | PC.NURSE ---
Pt reports episode at home where body felt stiff and clenched, awake for entire episode. Now reports whole body pain. Skin pwd. Neuros are intact. IV established and meds given as charted
[2023-02-16 09:56] LABS: Influenza A PCR NEGATIVE (Negative); Influenza B PCR NEGATIVE (Negative); Resp Syncy Virus RNA Qual PCR NEGATIVE (Negative); SARS COV2 PCR INHOUSE NEGATIVE (Negative)
== END 2023-02-16 10:33 | disposition home or self-care (01) ==
PROVIDERS: Physician Assistant Medical; Emergency Provider Emergency Medicine; PCP Internal Medicine
DX: R51.9 Headache, unspecified (principal); R41.82 Altered mental status, unspecified; Z20.822 Contact with and (suspected) exposure to COVID-19; Z20.828 Contact with and (suspected) exposure to other viral communicable diseases
CPT/HCPCS: 0241U; 36415; 70450; 71046; 80048; 80076; 81003; 83605; 83690; 85025; 96374; 99284; J1885

== ENCOUNTER 2023-02-18 11:20 | Emergency (ER) | payer MEDICAID, SELFPAY ==
[2023-02-18 11:40] VITALS: BP 120/64; PULSE 74; RESP 18; TEMP 36.2; O2SAT 97; BMI 19.2
--- NOTE | 2023-02-18 11:40 | ED.URI ---
HPI - URI/Sore Throat General Chief Complaint: General Medical Stated Complaint: throat swollen, hard to swallow Time Seen by Provider: 02/18/23 11:44 Source: patient, RN notes reviewed and old records reviewed Mode of arrival: ambulatory History of Present Illness HPI Narrative: 42yo M w/no sig PMHx presenting to the ED c/o sore throat x1 day w/swollen glands, headache & dry cough. Admits to painful swallowing. +sick contacts. Was seen in our ED 2 days ago for complicated migraine RUIZ, had negative w/u including labs and Head CT & viral testing. Denies fever, chills, ear pain, CP/SOB MD elicited complaint: cough and sore throat Related Data Previous Rx's Medication Instructions Recorded ondansetron 4 mg disintegrating 4 mg PO Q8H PRN nausea and 08/27/20 tablet vomiting #20 tabs ibuprofen 600 mg tablet 600 mg PO Q8H PRN pain #20 tabs 12/11/20 valacyclovir 1 gram tablet 1,000 mg PO TID 7 days #21 tabs 12/11/20 amoxicillin 875 mg-potassium 1 tab PO Q12H #14 tabs 12/22/20 clavulanate 125 mg tablet (Augmentin) doxycycline hyclate 100 mg capsule 100 mg PO BID 10 days #20 caps 01/26/21 oxycodone 5 mg tablet 5 mg PO Q8H PRN pain #8 tabs 01/26/21 prednisone 20 mg tablet 40 mg (2 x 20 mg) PO DAILY 5 days 01/26/21 #10 tabs amoxicillin 875 mg-potassium 1 tab PO BID 10 days #20 tabs 03/26/22 clavulanate 125 mg tablet cyclobenzaprine 10 mg tablet 10 mg PO TID PRN muscle spasm #14 04/29/22 tabs amoxicillin 875 mg-potassium 1 tab PO BID 7 days #14 tabs 08/25/22 clavulanate 125 mg tablet Allergies Allergy/AdvReac Type Severity Reaction Status Date / Time bee pollen [BEE STINGS] Allergy Unknown REDNESS Verified 02/18/23 11:40 AND SWELLING morphine [MORPHINE] Allergy Unknown RASH Verified 02/18/23 11:40 shrimp [SHRIMP] Allergy Unknown HIVES Verified 02/18/23 11:40 Review of Systems Review of Systems: Constitutional: No Fever, No Chills ENT/Mouth: No Ear Pain, No Nasal Congestion, No Sinus Pain, No Hoarseness, + sore throat, No Rhinorrhea, No Swallowing Difficulty Cardiovascular: No Chest Pain, No SOB Respiratory: + Cough Gastrointestinal: No Nausea, No Vomiting, No Abdominal pain Musculoskeletal: No joint pain, No Myalgias, No Joint Swelling Skin: No Skin Lesions, No rash Neuro: No Weakness, No Numbness, No Paresthesias, +RUIZ Yes all other systems are reviewed and are negative Constitutional: Constitutional: Reports as per HPI Neurologic: Denies Abnormal speech present [facility] Past Medical History Attestation statement: The following information was validated with the patient. Source: old records reviewed Onset Date is defined in the Problem List Problems that require an onset date and time if occurred within 24 hrs of arrival to the ED Aortic Dissection and Rupture; Neurologic impairment; Cardiopulmonary Arrest; Endotracheal Intubation; Insertion or Replacement of Mechanical Circulatory Assist Device Medical History No active medical problems Social History Social History Alcohol intake: never Patient Tobacco Use Status: Current everyday Tobacco user Substance Use Type: Marijuana Physical Exam Vital Signs: Vital Signs: Last Vital Signs Temp 97.2 F 02/18/23 11:40 Pulse 74 02/18/23 11:40 Resp 18 02/18/23 11:40 BP 120/64 02/18/23 11:40 Pulse Ox 97 02/18/23 11:40 O2 Del Method Room Air 02/18/23 11:40 BMI result Body Mass Index 19.2 Const: General: cooperative, healthy appearing and no acute distress Orientation/consciousness: patient oriented x3 Limitations: no limitations HEENT: Head: Yes normal to inspection and Yes atraumatic Ears: hearing grossly normal bilaterally, TM normal on the left and unable to visualize TM on the left (cerumen impaction) General nose exam: Normal external nose present Face and sinus: Yes normal facial exam Mouth: no drooling Throat: Yes uvula midline, Yes abnormal tonsil (erythematous, swollen & w/exudates), No peritonsillar mass, No uvula laterally displaced and No uvular edema Eyes: General: appearance normal, both eyes and all related structures EOM: EOMs intact bilaterally Neck: Neck: Yes normal visual inspection and Yes no meningeal signs Resp: Effort & Inspection: normal respiratory effort and no respiratory distress Auscultation: clear to auscultation bilaterally Cardio: Rate: regular rate Heart sounds: S1 normal heart sound present and S2 normal heart sound present Skin: Rashes: no rashes Wounds: no wounds Neuro: General: patient oriented x3, gait normal, tone normal, moves all extremities, no meningeal signs and CN's II-XI intact bilaterally Cranial nerves: Yes CN's II-XII intact bilaterally Cognition (Neuro): normal cognition Speech: No Abnormal speech present Gait exam (Neuro): Normal gait present Extrem: General: Yes normal to inspection Course Course Course Narrative: -rapid strep positive Results discussed with patient including worrisome signs and symptoms and strict return precautions, and when to return to the emergency department. They verbalized understanding and feel safe for discharge at this time. Medications Administered Discontinued Medications Generic Name Dose Route Start Last Admin Trade Name Freq PRN Reason Stop Dose Admin Acetaminophen/Butalbital/Caffeine 1 tab 02/18/23 11:43 02/18/23 11:48 Butalb/Acetamin/Caff 50/325/40 Tablet PO 02/18/23 11:44 1 tab ONCE ONE Administration Medical Decision Making Medical Decision Making MDM Narrative: 42yo M w/no sig PMHx presenting to the ED c/o sore throat x1 day w/swollen glands, headache & dry cough. Admits to painful swallowing. On exam VSS, NAD, nontoxic appearing, + bilateral tonsillar swelling/erythema and exudates noted. Uvula midline, talking in complete sentences, no respiratory distress, no focal neuro deficits. Concern for strep pharyngitis vs syndrome and migraine headache. Low suspicion for ICH, meningitis/encephalitis. No evidence of [employer] retropharyngeal abscess Plan: Rapid strep, PO fioricet Please refer to course for remaining clinical decision making, interpretation of labs/imaging results, and discussions with consultants and/or family members. Differential Diagnosis Differential Diagnoses: The differential diagnosis associated with the presentation includes As above Lab Data [facility] Lab Attestation statement: I reviewed the patient's lab results. Labs: Lab Results 02/18/23 Range/Units 12:14 S. pyogenes GrpA JONATHAN Positive A (Negative) External Record Review External record reviewed: Inpatient record, Office record, Outpatient record, Prior outpatient labs, Prior outpatient radiology, Primary care record and Outside ED record Tests considered The following testing was considered but not selected: As above Prescription Management I considered prescription management with: Pain Medication and Antibiotic Discharge Plan Discharge Clinical Impression: Strep pharyngitis Patient Disposition: Home, Self-Care Instructions: Strep Throat (DC) Prescriptions: No Action ondansetron 4 mg tablet,disintegrating 4 mg PO Q8H PRN (Reason: nausea and vomiting) Qty: 20 0RF valacyclovir 1 gram tablet 1,000 mg PO TID 7 Days Qty: 21 0RF ibuprofen 600 mg tablet 600 mg PO Q8H PRN (Reason: pain) Qty: 20 0RF amoxicillin-pot clavulanate [Augmentin] 875-125 mg tablet 1 tab PO Q12H Qty: 14 0RF amoxicillin-pot clavulanate 875-125 mg tablet 1 tab PO BID 10 Days Qty: 20 0RF doxycycline hyclate 100 mg capsule 100 mg PO BID 10 Days Qty: 20 0RF prednisone 20 mg tablet 40 mg PO DAILY 5 Days Qty: 10 0RF oxycodone 5 mg tablet 5 mg PO Q8H PRN (Reason: pain) Qty: 8 0RF Rx Instructions: Patient can partially fill prescription upon request cyclobenzaprine 10 mg tablet 10 mg PO TID PRN (Reason: muscle spasm) Qty: 14 0RF amoxicillin-pot clavulanate 875-125 mg tablet 1 tab PO BID 7 Days Qty: 14 0RF Referrals: Physician,Unknown J [Primary Care Provider] - 5 days
== END 2023-02-18 12:54 | disposition home or self-care (01) ==
PROVIDERS: Emergency Provider Student in an Organized Health Care Education/Training Program; PCP Family Medicine
DX: J02.0 Streptococcal pharyngitis (principal)
CPT/HCPCS: 87651; 99283

== ENCOUNTER 2023-08-02 09:05 | Emergency (ER) | payer SELFPAY ==
[2023-08-02 09:17] VITALS: BP 102/65; PULSE 71; RESP 18; TEMP 36.9; O2SAT 97; BMI 19.3
[2023-08-02 11:10] VITALS: BP 107/69; PULSE 70; RESP 16; TEMP 36.9; O2SAT 97
--- NOTE | 2023-08-02 11:23 | ED.BACK ---
HPI - Back Pain/Injury General Chief Complaint: Back Pain/Injury Stated Complaint: Back pain Time Seen by Provider: 08/02/23 10:50 Source: patient Mode of arrival: ambulatory Limitations: no limitations History of Present Illness ED Provider: Narciso Ding PA-C HPI Narrative: 42-year-old male presents to the ER for evaluation of low back pain that started yesterday. patient states he has not sure for started at home or at work but it is been getting worse. pain is located in the left lower back, stabbing and spasming in nature. It is worse with movement, deep breaths, lying and walking. He denies any radiation of the pain into his buttock, leg or abdomen. He states intermittently with certain steps it will radiate to the left groin. No scrotal pain. No urinary symptoms. No nausea or vomiting. No fevers. No falls or trauma. MD elicited complaint: back pain Pertinent past history: prior back pain Onset (ago): day(s) (1) Timing: progressively worsening Severity: severe Similar Symptoms Previously: Yes Quality: sharp, stabbing and spasming Location: left lower back Radiation: groin Exacerbating factors: movement, deep breaths, coughing/sneezing and lifting Relieving factors: sitting upright Context: unknown Associated symptoms: denies other symptoms Related Data Previous Rx's ?Medication ?Instructions ?Recorded ondansetron 4 mg disintegrating 4 mg PO Q8H PRN nausea and 08/27/20 tablet vomiting #20 tabs ibuprofen 600 mg tablet 600 mg PO Q8H PRN pain #20 tabs 12/11/20 valacyclovir 1 gram tablet 1,000 mg PO TID 7 days #21 tabs 12/11/20 amoxicillin 875 mg-potassium 1 tab PO Q12H #14 tabs 12/22/20 clavulanate 125 mg tablet (Augmentin) doxycycline hyclate 100 mg capsule 100 mg PO BID 10 days #20 caps 01/26/21 oxycodone 5 mg tablet 5 mg PO Q8H PRN pain #8 tabs 01/26/21 prednisone 20 mg tablet 40 mg (2 x 20 mg) PO DAILY 5 days 01/26/21 #10 tabs amoxicillin 875 mg-potassium 1 tab PO BID 10 days #20 tabs 03/26/22 clavulanate 125 mg tablet cyclobenzaprine 10 mg tablet 10 mg PO TID PRN muscle spasm #14 04/29/22 tabs amoxicillin 875 mg-potassium 1 tab PO BID 7 days #14 tabs 08/25/22 clavulanate 125 mg tablet amoxicillin 875 mg-potassium 1 tab PO BID 7 days #14 tabs 02/18/23 clavulanate 125 mg tablet cyclobenzaprine 10 mg tablet 10 mg PO TID PRN muscle spasm #14 08/02/23 tabs ibuprofen 600 mg tablet 600 mg PO Q8H PRN pain #20 tabs 08/02/23 lidocaine 5 % topical patch 1 patch topical DAILY #15 ea 08/02/23 Allergies Allergy/AdvReac Type Severity Reaction Status Date / Time bee pollen [BEE STINGS] Allergy Unknown REDNESS Verified 08/02/23 09:19 AND SWELLING morphine [MORPHINE] Allergy Unknown RASH Verified 08/02/23 09:19 shrimp [SHRIMP] Allergy Unknown HIVES Verified 08/02/23 09:19 Review of Systems Review of Systems: Yes all other systems are reviewed and are negative [facility] Past Medical History Medical History No active medical problems Social History Social History Alcohol intake: never Patient Tobacco Use Status: Current everyday Tobacco user Substance Use Type: Marijuana Advance Directives: No Advance Directives Information Provided: No Physical Exam Vital Signs: Vital Signs: Last Vital Signs Temp 98.5 F 08/02/23 11:10 Pulse 70 08/02/23 11:10 Resp 16 08/02/23 11:10 BP 107/69 08/02/23 11:10 Pulse Ox 97 08/02/23 11:10 O2 Del Method Room Air 08/02/23 11:10 BMI result Body Mass Index 19.3 Appearance: Alert. Oriented X3. No acute distress. HEENT: normal external inspection Neck: Normal inspection. CVS: Normal heart rate and rhythm. Pulses normal. Respiratory: No respiratory distress. Breath sounds normal. Abdomen: Soft and nontender. +BS x4 Skin: Skin warm and dry. Normal skin color. Normal skin turgor. No rashes. Back: Normal external inspection. No midline tenderness. Patient has soft tissue tenderness of the entire left lumbar area with palpable spasm. Limited spinal flexion and rotation due to pain. Extremities: No lower extremity edema. No joint swelling. Neuro/psych: Oriented X 3. No motor deficit. No sensory deficit. CN II-XII intact. Normal speech and cognition. steady gait. DTR normal Medications Administered Discontinued Medications Generic Name Dose Route Start Last Admin Trade Name Amber PRN Reason Stop Dose Admin Acetaminophen 975 mg 08/02/23 11:45 08/02/23 12:05 Acetaminophen 325 Mg Tablet PO 08/02/23 11:46 975 mg ONCE ONE Administration Ketorolac Tromethamine 30 mg 08/02/23 11:45 08/02/23 12:05 Ketorolac Tromethamine 30 Mg/Ml Vial IM 08/02/23 11:46 30 mg ONCE ONE Administration Lidocaine 1 patch 08/02/23 11:45 08/02/23 12:05 Lidocaine 4 % Patch Adh..Patch TRANSDERMA 08/02/23 11:46 1 patch ONCE ONE Administration Protocol Medical Decision Making Medical Decision Making MDM Narrative: 42-year-old male presents to the ER for evaluation of nontraumatic left lower back pain that started yesterday. Worse with movement. Soft tissue tenderness on examination. No urinary symptoms are CVA tenderness on examination. Most likely muscular back pain. Will treat with Toradol, Tylenol, Lidoderm here. Will send home with prescription for muscle relaxers. Work note provided per request. Differential Diagnosis Differential Diagnoses: The differential diagnosis associated with the presentation includes Inflammatory disorders, malignancy, trauma, osteoporosis, nerve root compression, radiculopathy, plexopathy, degenerative disc disease, disc herniation, spinal stenosis, sacroiliac joint dysfunction, facet joint injury, and less likely infection?like abscess or diskitis External Record Review External record reviewed: Outpatient record, Prior outpatient labs and Prior outpatient radiology Tests considered The following testing was considered but not selected: xr lumbar spine considered Prescription Management I considered prescription management with: Pain Medication Critical Care Time Critical Care Time Critical Care Time: No Discharge Plan Discharge Clinical Impression: Strain of lumbar region Qualifiers: Encounter type: initial encounter Qualified Code(s): S39.012A - Strain of muscle, fascia and tendon of lower back, initial encounter Patient Disposition: Home, Self-Care Instructions: Low Back Strain (ED), Lower Back Exercises (ED) Additional Instructions: Your pain is most likely due to muscle strain and spasm. No bending, lifting or twisting. Use ice several times per day for 20 minutes at a time for the next 48 hours and then change to heat. Take medications as prescribed to help with pain and discomfort. Follow up with your Primary Care Doctor this week. If your pain worsens, if you develop new numbness, tingling, weakness, loss of function or incontinence call 911 or come back to the ER right away for evaluation. Prescriptions: New cyclobenzaprine 10 mg tablet 10 mg PO TID PRN (Reason: muscle spasm) Qty: 14 0RF ibuprofen 600 mg tablet 600 mg PO Q8H PRN (Reason: pain) Qty: 20 0RF lidocaine 5 % adhesive patch,medicated 1 patch topical DAILY Qty: 15 0RF Rx Instructions: leave on most painful area for up to 12 hrs No Action ondansetron 4 mg tablet,disintegrating 4 mg PO Q8H PRN (Reason: nausea and vomiting) Qty: 20 0RF valacyclovir 1 gram tablet 1,000 mg PO TID 7 Days Qty: 21 0RF ibuprofen 600 mg tablet 600 mg PO Q8H PRN (Reason: pain) Qty: 20 0RF amoxicillin-pot clavulanate [Augmentin] 875-125 mg tablet 1 tab PO Q12H Qty: 14 0RF amoxicillin-pot clavulanate 875-125 mg tablet 1 tab PO BID 10 Days Qty: 20 0RF doxycycline hyclate 100 mg capsule 100 mg PO BID 10 Days Qty: 20 0RF prednisone 20 mg tablet 40 mg PO DAILY 5 Days Qty: 10 0RF oxycodone 5 mg tablet 5 mg PO Q8H PRN (Reason: pain) Qty: 8 0RF Rx Instructions: Patient can partially fill prescription upon request cyclobenzaprine 10 mg tablet 10 mg PO TID PRN (Reason: muscle spasm) Qty: 14 0RF amoxicillin-pot clavulanate 875-125 mg tablet 1 tab PO BID 7 Days Qty: 14 0RF amoxicillin-pot clavulanate 875-125 mg tablet 1 tab PO BID 7 Days Qty: 14 0RF Referrals: Ginny Reid MD [Primary Care Provider] - Stand Alone Forms: Work/School Release Print Language: Yoruba
[2023-08-02] MEDS: Acetaminophen 325 MG TABLET 975 MG PO (12:05)
[2023-08-02] MEDS: Ketorolac Tromethamine 30 MG/ML VIAL IM (12:05)
[2023-08-02] MEDS: Lidocaine 4 % Patch ADH..PATCH 1 PATCH TRANSDERMA (12:05)
[2023-08-02 12:15] VITALS: BP 107/69; PULSE 70; RESP 16; TEMP 36.9; O2SAT 97
== END 2023-08-02 12:25 | disposition home or self-care (01) ==
PROVIDERS: Emergency Provider Emergency Medicine; PCP Family Medicine
DX: S39.012A Strain of muscle, fascia and tendon of lower back, initial encounter (principal); F17.200 Nicotine dependence, unspecified, uncomplicated; F12.90 Cannabis use, unspecified, uncomplicated; X58.XXXA Exposure to other specified factors, initial encounter; Y93.9 Activity, unspecified; Y92.9 Unspecified place or not applicable; Y99.9 Unspecified external cause status
CPT/HCPCS: 96372; 99283; 99284; J1885

== ENCOUNTER 2024-01-30 02:38 | Emergency (ER) | payer SELFPAY ==
--- NOTE | ~2024-01-30 | XR_ITS ---
EXAMINATION: XR CHEST CLINICAL INFORMATION: Cough. Shortness of breath. COMPARISON: Chest radiograph 02/16/2023 TECHNIQUE: Frontal view of the chest was obtained. FINDINGS: Normal appearance of the cardiomediastinal structures. No effusions or pneumothoraces. Normal pattern of pulmonary vasculature. No focal pulmonary consolidation. Mild central peribronchial wall thickening noted. XR/XR chest 1V IMPRESSION: Mild central peribronchial wall thickening. Findings could represent bronchitis and/or the sequela of asthma. No focal pulmonary consolidation. Electronically signed by: Anthony Sexton MD 01/30/2024 04:13 AM ANA GONSALEZ
[2024-01-30 02:45] VITALS: O2SAT 99
[2024-01-30 02:49] VITALS: BP 110/36; PULSE 56; RESP 18; TEMP 36.8; O2SAT 97; BMI 19.9
--- NOTE | 2024-01-30 02:53 | ECG_ITS ---
Test Reason : CHEST TIGHTNESS Blood Pressure : / mmHG Vent. Rate : 056 BPM Atrial Rate : 056 BPM P-R Int : 138 ms QRS Dur : 100 ms QT Int : 410 ms P-R-T Axes : 070 054 043 degrees QTc Int : 395 ms Sinus bradycardia Otherwise normal ECG When compared with ECG of 18-NOV-2021 13:37, No significant change was found Referred By: Generic ED Physician Electronically Signed By:MARCELINA MEDINA
[2024-01-30 03:25] LABS: MANUAL DIFF FLAG NO
[2024-01-30 03:27] LABS: Basophils Absolute Auto 0.1 X10*3/uL (0.0-0.2); Basophils Percent Auto 1.2 % (0-2); Eosinophils Percent Auto 11.5 % (0-4); Hematocrit 37.7 % (42.0-52.0); Hemoglobin 13.2 g/dl (14.0-18.0); Imm Gran Abs Auto 0.02 X10*3/uL (0.00-0.03); Imm Gran Pct Auto 0.2 % (0.0-0.4); Lymphocytes Percent Auto 34.6 % (20-40); Mean Corpuscular Hemoglobin 31.7 pg (27.0-33.0); Mean Corpuscular Volume 90.4 fL (80.0-98.0); Mean Platelet Volume 9.5 fL (9.4-12.4); Monocytes Absolute Auto 0.8 X10*3/uL (0.1-1.2); Monocytes Percent Auto 9.3 % (2-11); Neutrophils Absolute Auto 3.7 x10*3/uL (2.0-8.3); Neutrophils Percent Auto 43.2 % (45-73); Platelet Count 211 X10*3/uL (160-400); Red Blood Count 4.17 X10*6/uL (4.60-5.80); Red Cell Distribution Width 14.3 % (11.0-16.0); White Blood Count 8.5 X10*3/uL (4.8-10.8)
[2024-01-30 03:41] LABS: Alanine Aminotransferase 30 U/L (0-40); Albumin Level 3.6 g/dL (3.5-5.0); Alkaline Phosphatase 57 U/L (39-117); Anion Gap 11 (12-20); Aspartate Amino Transferase 28 U/L (5-37); Bilirubin Total 0.2 mg/dL (0.0-1.0); Blood Urea Nitrogen 18 mg/dL (9-16); Calcium 8.5 mg/dL (8.4-10.2); Carbon Dioxide 24 mmol/L (22-29); Chloride 108 mmol/L (96-108); Creatinine Clr Calc Pharmacy 110.3; Estimated Glomerular Filt Rate > 60; Glucose Random 122 mg/dL (60-115); Potassium 3.8 mmol/L (3.3-5.1); Sodium 139 mmol/L (135-145); Total Protein 6.4 g/dL (6.5-8.0)
[2024-01-30 03:54] LABS: Troponin-I High Sensitivity < 2.7 ng/L (<3.5-35.0)
[2024-01-30 04:03] LABS: Influenza A PCR NEGATIVE (Negative); Influenza B PCR NEGATIVE (Negative); Resp Syncy Virus RNA Qual PCR NEGATIVE (Negative); SARS COV2 PCR INHOUSE NEGATIVE (Negative)
--- NOTE | 2024-01-30 04:26 | ED_ITS ---
HPI - URI/Sore Throat General Chief Complaint: Upper Respiratory Symptoms Stated Complaint: cough x1day & SOB Time Seen by Provider: 01/30/24 04:18 Source: patient Mode of arrival: ambulatory Limitations: no limitations History of Present Illness ED Provider: Dr. Laurel Veronica HPI Narrative: Patient comes to the emergency room complaining of an upper respiratory infection the started couple of days ago, complaining of cough. Patient states that he had asthma as a child but in the last couple of days maybe he had a bit of wheezing but is not sure. Patient denies fever chills. Patient states that today he had a coughing fit, had a difficult time catching his breath but was eventually able to do so and came to the hospital. Denies any chest pain. Related Data Previous Rx's ?Medication ?Instructions ?Recorded ondansetron 4 mg disintegrating 4 mg PO Q8H PRN nausea and 08/27/20 tablet vomiting #20 tabs ibuprofen 600 mg tablet 600 mg PO Q8H PRN pain #20 tabs 12/11/20 valacyclovir 1 gram tablet 1,000 mg PO TID 7 days #21 tabs 12/11/20 amoxicillin 875 mg-potassium 1 tab PO Q12H #14 tabs 12/22/20 clavulanate 125 mg tablet (Augmentin) doxycycline hyclate 100 mg capsule 100 mg PO BID 10 days #20 caps 01/26/21 oxycodone 5 mg tablet 5 mg PO Q8H PRN pain #8 tabs 01/26/21 prednisone 20 mg tablet 40 mg (2 x 20 mg) PO DAILY 5 days 01/26/21 #10 tabs amoxicillin 875 mg-potassium 1 tab PO BID 10 days #20 tabs 03/26/22 clavulanate 125 mg tablet cyclobenzaprine 10 mg tablet 10 mg PO TID PRN muscle spasm #14 04/29/22 tabs amoxicillin 875 mg-potassium 1 tab PO BID 7 days #14 tabs 08/25/22 clavulanate 125 mg tablet amoxicillin 875 mg-potassium 1 tab PO BID 7 days #14 tabs 02/18/23 clavulanate 125 mg tablet cyclobenzaprine 10 mg tablet 10 mg PO TID PRN muscle spasm #14 08/02/23 tabs ibuprofen 600 mg tablet 600 mg PO Q8H PRN pain #20 tabs 08/02/23 lidocaine 5 % topical patch 1 patch topical DAILY #15 ea 08/02/23 benzonatate 100 mg capsule 100 mg PO TID PRN cough #10 caps 01/30/24 prednisone 20 mg tablet 40 mg (2 x 20 mg) PO DAILY #5 tabs 01/30/24 Allergies Allergy/AdvReac Type Severity Reaction Status Date / Time bee pollen [BEE STINGS] Allergy Unknown REDNESS Verified 01/30/24 02:50 AND SWELLING morphine [MORPHINE] Allergy Unknown RASH Verified 01/30/24 02:50 shrimp [SHRIMP] Allergy Unknown HIVES Verified 01/30/24 02:50 Review of Systems 2 Review of Systems: Constitutional : No Weight loss, No Fever, No Chills, No Night Sweats, No Fatigue, No Malaise ENT/Mouth : No Hearing loss, No Ear Pain, No Nasal Congestion, No Sinus Pain, No Hoarseness, No sore throat, No Rhinorrhea, No Swallowing Difficulty Eyes: No Eye Pain, No Swelling, No Redness, No Foreign Body, No Discharge, No Vision Changes Cardiovascular : No Chest Pain, No SOB, No Dyspnea on Exertion, No Orthopnea, No Edema, No Palpitations Respiratory : Complaining of productive cough, possible wheezing, shortness of breath during coughing which self-resolved Gastrointestinal : No Nausea, No Vomiting, No Diarrhea, No Constipation, No abdominal Pain, No Hematochezia, No Melena Genitourinary : no irregular bleeding, No Dysuria, No Urinary Frequency, No Hematuria, No Urinary Incontinence, No Urgency, No Flank Pain, No Urinary Flow Changes, No Hesitancy Musculoskeletal : No joint pain, No Myalgias, No Joint Swelling Skin : No Skin Lesions, No rash Neuro : No Weakness, No Numbness, No Paresthesias, No Loss of Consciousness, No Dizziness, No Headache Psych : No Anxiety/Panic, No Depression, No SI/HI/AH/VH, No Social Issues, Heme/Lymph: No Bruising, No Bleeding,No Lymphadenopathy Endocrine : No Polyuria, No Polydipsia, No Temperature Intolerance REPLACED BY [facility] Past Medical History Medical History No active medical problems Social History Social History Alcohol intake: never Patient Tobacco Use Status: Current everyday Tobacco user Substance Use Type: Marijuana Advance Directives: No Advance Directives Information Provided: Yes Do you have a plan to hurt others: No Plan Physical Exam 2 Vital Signs: Vital Signs: Last Vital Signs Temp 98.2 F 01/30/24 02:49 Pulse 56 01/30/24 02:49 Resp 18 01/30/24 02:49 BP 110/36 L 01/30/24 02:49 Pulse Ox 97 01/30/24 02:49 O2 Del Method Room Air 01/30/24 02:49 BMI result Body Mass Index 19.9 Const: Other: Appearance: Alert. Oriented X3. No acute distress. Eyes: Pupils equal, round and reactive to light. ENT: Pharynx normal. Neck: Normal inspection. Neck supple. No lymph nodes noted. No crepitus CVS: Normal heart rate and rhythm. Pulses normal. Normal S1 and S2 Respiratory: No respiratory distress. Breath sounds normal. No Wheezing. No rales Abdomen: Soft and nontender. No rigidity. No distention. Skin: Skin warm and dry. Normal skin color. Normal skin turgor. Extremities: No lower extremity edema. No Lacerations. No Rash Neuro: Oriented X 3. No motor deficit. No sensory deficit. Moving all extremities. No slurred speech. CN 2 through 12 grossly intact Psych: calm, cooperative, normal affect Medical Decision Making Medical Decision Making [facility] Narrative: Patient of EKG: Sinus bradycardia, heart rate 56, no ST segment depression or elevation, no T-wave inversion, QTC 395 Differential Diagnosis Differential Diagnoses: The differential diagnosis associated with the presentation includes Bronchitis, pneumonia, asthma Lab Data [facility] Lab Attestation statement: I reviewed the patient's lab results. 01/30/24 03:22 01/30/24 03:22 Labs: Lab Results 01/30/24 Range/Units 03:22 WBC 8.5 (4.8-10.8) X10*3/uL RBC 4.17 L (4.60-5.80) X10*6/uL Hgb 13.2 L (14.0-18.0) g/dl Hct 37.7 L (42.0-52.0) % MCV 90.4 (80.0-98.0) fL MCH 31.7 (27.0-33.0) pg MCHC 35.0 (31.0-36.0) g/dl RDW 14.3 (11.0-16.0) % Plt Count 211 (160-400) X10*3/uL MPV 9.5 (9.4-12.4) fL Immature Gran % (Auto) 0.2 (0.0-0.4) % Neut % (Auto) 43.2 L (45-73) % Lymph % (Auto) 34.6 (20-40) % [place] % (Auto) 9.3 (2-11) % Eos % (Auto) 11.5 H (0-4) % Baso % (Auto) 1.2 (0-2) % Lymph # (Auto) 3.0 (1.2-4.9) X10*3/uL [place] # (Auto) 0.8 (0.1-1.2) X10*3/uL Eos # (Auto) 1.0 H (0.0-0.4) X10*3/uL Baso # (Auto) 0.1 (0.0-0.2) X10*3/uL Abs Immat Gran (auto) 0.02 (0.00-0.03) X10*3/uL Absolute Neuts (auto) 3.7 (2.0-8.3) x10*3/uL Absolute Nucleated RBC 0.000 (0.0-0.012) X10*3/uL Nucleated RBC % (auto) 0.0 (0.0-0.2) /100WBC Sodium 139 (135-145) mmol/L Potassium 3.8 (3.3-5.1) mmol/L Chloride 108 (96-108) mmol/L Carbon Dioxide 24 (22-29) mmol/L Anion Gap 11 L (12-20) BUN 18 H (9-16) mg/dL Creatinine 0.79 (0.5-1.4) mg/dL Estim Creat Clear Calc 110.3 Estimated GFR > 60 Random Glucose 122 H (60-115) mg/dL Calcium 8.5 D (8.4-10.2) mg/dL Total Bilirubin 0.2 (0.0-1.0) mg/dL AST 28 (5-37) U/L ALT 30 (0-40) U/L Alkaline Phosphatase 57 (39-117) U/L Troponin I High Sens < 2.7 (<3.5-35.0) ng/L Total Protein 6.4 L (6.5-8.0) g/dL Albumin 3.6 (3.5-5.0) g/dL Influenza Type A (PCR) NEGATIVE (Negative) Influenza Type B (PCR) NEGATIVE (Negative) RSV RNA Qual (PCR) NEGATIVE (Negative) SARS-CoV-2 RNA (RT-PCR) NEGATIVE (Negative) Discharge Plan Discharge Clinical Impression: Upper respiratory infection, Bronchitis Patient Disposition: Home, Self-Care Instructions: Upper Respiratory Infection (DC), Acute Bronchitis (ED) Additional Instructions: Please follow-up with your primary care physician tomorrow. If you have any worsening or new symptoms, please return to the emergency room or call 911 Prescriptions: New prednisone 20 mg tablet 40 mg PO DAILY Qty: 5 0RF benzonatate 100 mg capsule 100 mg PO TID PRN (Reason: cough) Qty: 10 0RF No Action ondansetron 4 mg tablet,disintegrating 4 mg PO Q8H PRN (Reason: nausea and vomiting) Qty: 20 0RF valacyclovir 1 gram tablet 1,000 mg PO TID 7 Days Qty: 21 0RF ibuprofen 600 mg tablet 600 mg PO Q8H PRN (Reason: pain) Qty: 20 0RF amoxicillin-pot clavulanate [Augmentin] 875-125 mg tablet 1 tab PO Q12H Qty: 14 0RF amoxicillin-pot clavulanate 875-125 mg tablet 1 tab PO BID 10 Days Qty: 20 0RF doxycycline hyclate 100 mg capsule 100 mg PO BID 10 Days Qty: 20 0RF prednisone 20 mg tablet 40 mg PO DAILY 5 Days Qty: 10 0RF oxycodone 5 mg tablet 5 mg PO Q8H PRN (Reason: pain) Qty: 8 0RF Rx Instructions: Patient can partially fill prescription upon request cyclobenzaprine 10 mg tablet 10 mg PO TID PRN (Reason: muscle spasm) Qty: 14 0RF amoxicillin-pot clavulanate 875-125 mg tablet 1 tab PO BID 7 Days Qty: 14 0RF cyclobenzaprine 10 mg tablet 10 mg PO TID PRN (Reason: muscle spasm) Qty: 14 0RF ibuprofen 600 mg tablet 600 mg PO Q8H PRN (Reason: pain) Qty: 20 0RF lidocaine 5 % adhesive patch,medicated 1 patch topical DAILY Qty: 15 0RF Rx Instructions: leave on most painful area for up to 12 hrs amoxicillin-pot clavulanate 875-125 mg tablet 1 tab PO BID 7 Days Qty: 14 0RF Stand Alone Forms: Work/School Release Print Language: Mauritanian
[2024-01-30 04:58] VITALS: BP 106/70; PULSE 50; RESP 12; TEMP 36.7; O2SAT 97
[2024-01-30 05:09] VITALS: BP 106/70; PULSE 50; RESP 12; TEMP 36.7; O2SAT 97
== END 2024-01-30 05:11 | disposition home or self-care (01) ==
PROVIDERS: Emergency Provider Emergency Medicine; PCP Family Medicine
DX: J06.9 Acute upper respiratory infection, unspecified (principal); R00.1 Bradycardia, unspecified; J40 Bronchitis, not specified as acute or chronic; R05.9 Cough, unspecified; R06.02 Shortness of breath; Z03.818 Encounter for observation for suspected exposure to other biological agents ruled out; Z79.899 Other long term (current) drug therapy
CPT/HCPCS: 0241U; 36415; 71045; 80053; 84484; 85025; 93005; 99283; 99284

== ENCOUNTER → 2024-01-30 02:53 | Outpatient (BNV) | payer SELFPAY | PROVIDERS: Emergency Provider Emergency Medicine; PCP Family Medicine; Visit Provider Internal Medicine | DX: R07.89 Other chest pain (principal) | CPT/HCPCS: 93010 ==